=== PATIENT | male | born 1960 | race Caucasian/White ===

== ENCOUNTER 2020-02-19 01:12 | Inpatient (IN) | payer BC ==
[2020-02-19] MEDS ORDERED: Midazolam HCl 2 mg/2 ml Vial ONE (01:33)
[2020-02-19] MEDS ORDERED: Fentanyl 100 MCG/2 ML VIAL ONE (01:34)
[2020-02-19] MEDS ORDERED: Atropine Sulfate 1 mg/10 ml Syringe ONE (01:50)
[2020-02-19] MEDS ORDERED: Aggrastat 12.5 MG/250 ML 0 ML ONE (02:02)
[2020-02-19] MEDS ORDERED: traMADol HCl 50 MG TAB PO PRN (02:07)
[2020-02-19] MEDS ORDERED: Morphine 2 MG/ML SYRINGE SLOW IVP PRN (02:07)
[2020-02-19] MEDS ORDERED: Acetaminophen/Codeine 30-300mg Tablet PO PRN (02:07)
[2020-02-19] MEDS ORDERED: Heparin 10,000 UNITS/ 10 ML VIAL SLOW IVP SCH (02:30)
--- NOTE | 2020-02-19 02:52 | HP ---
CHIEF COMPLAINT: Chest pain. HISTORY OF PRESENT ILLNESS: Mr. Lyons is a 59-year-old white gentleman, who came to the hospital, was transferred from [facility]. He actually presented to [facility] last night with chest pain. He was evaluated and found to have an elevated troponin, diagnosed with a non-ST elevation KY with ongoing chest pain. He declined admission and actually left AMA. He came back today as he continued to have chest pain. At this time, his EKG was changed. He had ST elevations inferiorly, so he was transferred emergently with an ST-elevation KY activation. In the ER, his pain was pretty much resolved. He was taken emergently to the catheterization lab. However, as his STs remained elevated and he was found to have an occluded distal RCA, this one was wired and ballooned opened and manual thrombectomy was done. There was a very poor distal vessel distally. We had already taken pictures of the left side and he had severe multivessel disease, possibly needing bypass surgery, so the RCA was left with the balloon angioplasty results only. He had no change in his symptoms before or after opening the vessel. He was already chest pain free by the time he arrived. He tells me that he has noticed some chest tightness in the last 2 to 3 months. 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 PAST MEDICAL HISTORY: 1. Hypertension diagnosed about 2 weeks ago. 2. Diabetes diagnosed yesterday in the ER. He takes no medications for this. PAST SURGICAL HISTORY: None. OUTPATIENT MEDICATIONS: Include, 1. Losartan 50 mg a day. He tells me he has been doubling up taking 100 daily. For the last few days, his blood pressure was not getting controlled. 2. Aspirin 81 a day. ALLERGIES: NO KNOWN DRUG ALLERGIES. SOCIAL HISTORY: Smokes a little less than one pack a day for many, many years. Denies any drug use. Social alcohol use only. FAMILY HISTORY: Father had stents placed and had a heart attack in his 70s. Mother had heart attacks as well under 70s. REVIEW OF SYSTEMS: A 12-point review of systems was done and was all negative except as stated in the history of present illness. PHYSICAL EXAMINATION: VITAL SIGNS: Temperature 97.2, pulse 70, respiratory rate 16, satting 98% on 2 L nasal cannula, and blood pressure 116/78. GENERAL: Awake, alert, and oriented x3. No distress. HEENT: Normocephalic and atraumatic. NECK: Supple. LUNGS: Clear. CARDIOVASCULAR: S1, S2. No S3 or S4. No murmurs. ABDOMEN: Soft. Positive bowel sounds. EXTREMITIES: No edema. SKIN: Warm and dry. LABORATORY DATA: Laboratory work was reviewed. His white count of 14, hemoglobin of 14, hematocrit 45, and platelet count of 255. Coags were reviewed. Chemistries were reviewed. Troponin was 0.79, when he came into the ER yesterday; 9.0 on his presentation today. GFR was greater than 90. Glucose was 434 yesterday, 319 today. BNP was 25 yesterday. EKG was reviewed, inferior ST elevations with Qs suggestive of an old inferior [place]. CT of the chest and x-rays were reviewed. ASSESSMENT: 1. Inferior ST-elevation myocardial infarction. 2. Newly diagnosed type 2 diabetes. 3. Hypertension. PLAN: 1. Status post balloon angioplasty of the RCA. Very small distal vessel. He is getting small collaterals to the RCA already. He is pain free despite having a completely occluded artery. Most likely this inferior distribution is already infarcted. He does have severe LAD and circumflex disease. We will consult Cardiothoracic Surgery to see if they feel he would be a candidate for a surgical revascularization at this point. 2. Echocardiogram is to be done. 3. We will continue heparin drip for now as he has a large amount of thrombus. During manual thrombectomy, we had a large amount of red thrombus taken out of the RCA. 4. High dose statin and aspirin. 5. PPI for stress ulcer prophylaxis. 6. We will keep n.p.o. just in case surgery is planned for later today. 7. Full code. 8. Disposition, pending further evaluation. Job ID: [id number]
[2020-02-19 02:54] LABS: #Basophils 0.1 thou/uL (0.0-0.2); #Eosinphils 0.5 thou/uL (0.0-0.7); #Lymphocytes 4.7 thou/uL (1.20-3.40); #Monocytes 1.1 thou/uL (0.11-0.59); #Neutrophils 11.2 thou/uL (1.40-6.50); %Basophils 0.4 % (0.0-1.0); %Eosinophils 2.7 % (0.0-10.0); %Lymphocytes 26.7 % (21.0-51.0); %Monocytes 6.1 % (0.0-10.0); %Neutrophils 64.2 % (42.0-75.0); Hemoglobin 14.2 g/dL (14.0-18.0); Mean Corpuscular HGB CONC 34.1 g/dL (32.0-36.0); Mean Corpuscular Volume 91.1 fL (78.0-98.0); Mean Platelet Volume 8.2 fL (7.4-10.4); Platelet Count 272 thou/uL (130-400); RBC Distribution Width 13.2 % (11.5-14.5); Red Blood Cell (RBC) Count 4.57 mill/uL (4.70-6.10); White Blood Cell (WBC) Count 17.5 thou/uL (4.8-10.8)
[2020-02-19] MEDS ORDERED: Sodium Chloride 0.9% 250 ML IV SCH (03:00)
[2020-02-19 03:05] VITALS: BMI 36.8
[2020-02-19 03:18] LABS: PTT Greater than 250.0 SEC (22.9-36.1)
[2020-02-19 03:20] LABS: ALT (SGPT) 32 U/L (8-55); AST (SGOT) 55 U/L (5-34); Albumin 3.5 g/dL (3.5-5.0); Alkaline Phosphatase 64 U/L (40-110); Anion Gap 13 mmol/L (10-20); BUN (Urea Nitrogen) 8 mg/dL (8.4-25.7); Bilirubin, Total 0.6 mg/dL (0.2-1.2); Calc. Creatinine Clearance 184 mL/min (70-130); Calcium 8.4 mg/dL (7.8-10.44); Carbon Dioxide 24 mmol/L (22-29); Chloride 100 mmol/L (98-107); Estimated GFR-MDRD Greater than 90; Globulin 2.9 g/dL (2.4-3.5); Glucose 283 mg/dL (70-105); Protein, Total 6.4 g/dL (6.0-8.3); Sodium 133 mmol/L (136-145)
[2020-02-19] MEDS: Heparin 25,000 units/D5W 500 ML IVPB SCH (03:27)
[2020-02-19 03:34] LABS: CKMB 36.8 ng/mL (0-6.6); Troponin I 10.945 ng/mL (< 0.028)
[2020-02-19] MEDS: Nitroglycerin 0.4 MG TAB (25 Tab Bottle) SL PRN (06:28)
[2020-02-19] MEDS: Aspirin Chewable 81 MG TAB PO SCH (07:42)
[2020-02-19 08:37] LABS: Hemoglobin A1c 10.4 % (4.0-6.0)
[2020-02-19 08:56] LABS: Critical Call Chem Troponin I RESULT DECREASING; Troponin I 10.653 ng/mL (< 0.028)
[2020-02-19 08:56] LABS: CKMB 33.2 ng/mL (0-6.6); Critical Call CKMB RESULT DECREASING
[2020-02-19] MEDS ORDERED: Iopamidol 370 76% 100 ML VIAL ONE (09:36)
[2020-02-19] MEDS ORDERED: Communication Order-Pharmacy FS SCH (12:30)
--- NOTE | 2020-02-19 14:27 | CON ---
DATE OF CONSULTATION: 02/19/2020 REQUESTING PHYSICIAN: Garo Chatman MD PRIMARY CARE PHYSICIAN: Dr. Lexa De La Cruz. CHIEF COMPLAINT: Chest pain. HISTORY OF PRESENT ILLNESS: The patient is a 59-year-old man who gives a history of noticing that his blood pressure was running high for the last several weeks or even few months. He says that he finally bought a blood pressure machine of his known recently and his blood pressure had been running in the 180s systolic range. His primary care physician started him on losartan and aspirin. He had chest pain in his central chest and up into his throat, going into his arms, and got someone to drive him to the [facility]. His blood pressure and chest pain improved with labetalol and nitroglycerin paste. He had a positive troponin on his initial labs, but refused admission. About 24 hours later, he had recurrence of pain, returned to the emergency room where he was again found to be hypertensive and this time he had ST elevations in his inferior leads and he agreed to transfer to [place]. He was taken to the laboratory technical specialist and balloon angioplasty of an occluded right coronary was undertaken. He has had an uncomplicated post infarction course thus far. PAST MEDICAL HISTORY: Significant for: 1. Recently diagnosed hypertension. 2. Diabetes mellitus is being diagnosed this hospitalization. MEDICATIONS: Until recently, the patient had no medications. He was recently started on losartan 50 mg a day and a baby aspirin a day. He received nitroglycerin paste and labetalol at his first hospital visit to the [facility], and was given a prescription for metformin and Lopressor, but had not filled those prescriptions. He is currently on aspirin 81 mg a day, Lipitor 40 mg at bedtime, Protonix 40 mg orally once a day, and a heparin drip. He received Aggrastat in the laboratory technical specialist, but no oral platelet agents beyond his aspirin. SOCIAL HISTORY: He smokes about a pack of cigarettes a day. FAMILY HISTORY: His father had apparently significant COPD, he lived in mid 80s and had "heart problems" for about the last 10 years of his life. Mother with Alzheimer disease. REVIEW OF SYSTEMS: Notable for an episode of chest pain about 2 weeks ago. One of these episodes of chest pain was associated with some diaphoresis. He has not had any shortness of breath. He has chronic dependent edema. He has no eye, speech, facial, or extremity symptoms consistent with TIAs. PHYSICAL EXAMINATION: GENERAL: He is a large man, in no distress. VITAL SIGNS: In the [facility] emergency room Wednesday night, his heart rate initially was 81 and blood pressure 201/97, those came down to 76 and 155/81 with 10 mg of labetalol and 1 inch of nitroglycerin paste, but it crept back up to 80 and 171/86 at the time of his leaving AMA. On representation late last night, his heart rate was 80 and blood pressure of 196/86. Currently, his heart rate is 85 and blood pressure is 142/74. He is 5 feet 10 inches and weighs 256.5 pounds. HEENT: He has no xanthelasma. NECK: No JVD. No carotid bruits. CHEST: Clear to auscultation. CARDIAC: He has a regular rate and rhythm without obvious murmur or gallop. ABDOMEN: Soft and nontender without any obvious organomegaly or bruits. EXTREMITIES: He has palpable radial, left femoral, and bilateral dorsalis pedis pulses. He has a femoral sheath in place in the right groin. He has a venous stasis pigmentation changes anteriorly in the pretibial region in his lower legs with small areas of ulceration anteriorly on both legs. He has brisk capillary refill. He has about 2+ edema. NEUROLOGIC: Grossly nonfocal. LABORATORY DATA: White count of 14.3, hemoglobin of 14.1, hematocrit 45.1, and platelets 272,000. Prior to heparinization, his PT was 13.0, INR 1.0, and PTT 30.4. Sodium was 133, potassium 4.0, chloride 100, CO2 of 24, glucose 283, BUN 8, creatinine 0.72, and calcium 8.4. Protein 6.4, albumin 3.5, bilirubin 0.6, alkaline phosphatase 64, AST 55, and ALT 32. His troponin shortly after midnight early yesterday morning was 0.797. Shortly after midnight early this morning, it was 9.088 and was associated with a CPK of 515. His troponin about 2:40 this morning was 10.945 and about 8:15 this morning was 10.653. His blood sugar at original presentation late Wednesday night was 434 and then late last night was 319. His hemoglobin A1c is 10.4. His EKG from last night showed inferior ST elevations. His chest x-ray showed no obvious cardiomegaly, it was somewhat difficult to appreciate whether the prominent pulmonary vasculature represented edema, pulmonary vascular congestion, or simply under-penetration of the plain films. He had a CTA that showed no evidence of pulmonary embolism, and on those lung windows, it can be appreciated that he seems to have vascular congestion dependently. He has no obvious aortic calcifications. His cardiac catheterization showed an occluded dominant right coronary that was opened by balloon angioplasty. He has disease in his PDA. His left main and very proximal LAD were normal. Shortly after the first septal management psychologist, there was significant stenosis, although there were multiple stenoses in the LAD. His circumflex gives off a very large OM that has a lesion in it. There is disease in an OM2, but it is fairly small. LVEF by my estimation is probably at best 20% and probably closer to 10 or 15, although LVEDP was not markedly elevated. His aortic pressure on pullback was 109/63 with a mean of 83. A snapshot of the LV just shortly before that was 116/8 with an EDP of 18 and LV pressure used as the baseline for pullback was 120/9 with EDP of 23. His echocardiogram is pending. IMPRESSION AND RECOMMENDATIONS: Three-vessel coronary artery disease. It sounds like he had a non-ST elevation myocardial infarction Wednesday night and then re-infarcted this time with ST-elevation last night. It is hard to tell how much of his bad ejection fraction at the moment is due to infarction, how much is due to stunned myocardium, how much is long-standing disease that may or may not recover, but certainly he would be at significantly increased risk with revascularization immediately. I would like to at least give him a few days and re-evaluate his cardiac function before making any firm recommendations. Given his anatomy and his clinical course, trying to send him home to bring him back at a later date when he has had more time for his LV to recover, may prove problematic. In the mean time, his blood sugars and blood pressure need to be brought under good control. Job ID: [id number]
--- NOTE | 2020-02-19 14:47 | CON ---
DATE OF CONSULTATION: 02/19/2020 SERVICE: Pulmonary Medicine. REASON FOR CONSULTATION: ICU patient. HISTORY OF PRESENT ILLNESS: The patient is a 59-year-old white male with past medical history significant for coronary artery disease. He is in his usual state of health until one day prior to presentation. He started having onset of crushing chest discomfort. This lasted for 24 hours before he sought medical attention. At that point, he was discovered to have an ST-elevation myocardial infarction. He was emergently taken down for cardiac catheterization, where percutaneous coronary intervention with thrombectomy, and balloon angioplasty was performed. No stent was placed. After this procedure, he had resolution in his chest discomfort. He is being considered for coronary artery bypass graft, because of multivessel disease identified. Otherwise, he is currently in his usual state of health. He denies any current shortness of breath or chest discomfort. He does not have any significant respiratory issues, but has a very strong positive screen for sleep apnea, which I have told him to discuss with his primary care physician. PAST MEDICAL HISTORY: 1. Hypertension. 2. Type 2 diabetes mellitus. 3. Coronary artery disease. PAST SURGICAL HISTORY: Percutaneous coronary intervention. SOCIAL HISTORY: He smokes under a pack a day. He has a greater than 30 pack- year history of smoking, however. He denies any alcohol or illicit drugs. He has no exposure to chemicals, dust, asbestos, or tuberculosis. FAMILY HISTORY: Noncontributory. ALLERGIES: NO KNOWN DRUG ALLERGIES. MEDICATIONS: List of his inpatient medications was reviewed. No specific updates were made at this time. REVIEW OF SYSTEMS: General, head, ears, eyes, nose, throat, cardiovascular, respiratory, GI, , musculoskeletal, neurologic, and skin is negative except as mentioned in HPI. PHYSICAL EXAMINATION: VITAL SIGNS: Afebrile. Pulse 80, blood pressure 146/68, respirations 21, saturation 96% on room air. GENERAL: The patient is awake and alert, in no apparent distress. LUNGS: Decent air entry with no prolonged expiratory phase or wheezing present. HEART: Normal rate, regular. ABDOMEN: Soft, nontender, nondistended. Bowel sounds are positive. MUSCULOSKELETAL: No cyanosis or clubbing. There is no pitting in the bilateral lower extremities. NEUROLOGIC: Grossly nonfocal. LABORATORY DATA: WBC 17.5, hemoglobin 14.2, platelets 272,000. Basic metabolic profile is unremarkable. Liver function studies are unremarkable except for an AST minimally elevated. Troponin has capped out at 10.6. Hemoglobin A1c 10.4. IMAGING: Chest x-ray demonstrates no acute cardiopulmonary abnormality. ASSESSMENT: 1. ST-elevation myocardial infarction, status post percutaneous coronary intervention with balloon angioplasty, postop day #1. 2. Coronary artery disease, severe. 3. Type 2 diabetes mellitus. DISCUSSION AND PLAN: The patient is doing fine from respiratory standpoint and remains stable for transition out of the ICU. In the outpatient setting, it would be reasonable to screen him for obstructive sleep apnea. If this is persistently positive, an outpatient polysomnogram should be considered. I have asked for him to discuss this with his primary care physician. Critical Care will follow in this location, but when he leaves the ICU, I will sign off. Please call with additional questions or concerns through time. 70 minutes have been devoted to this patient in various activities. I personally reviewed all imaging studies and laboratory data noted within this document. For fifty percent of this time, I was interacting with the patient at the bedside or coordinating care with the care team. For the remainder of the time I was immediately available to the patient in the hospital unit. Job ID: [id number] MTDD
--- NOTE | 2020-02-19 16:04 | PDOC.CPN ---
- Subjective Date: 02/19/20 Time: 16:01 Interval history: He is doing better. Had an episodes of chest pain earlier this morning that responded to SL nitro. - Review of Systems General: denies: fever/chills, weight/appetite/sleep changes, night sweats, fatigue Respiratory: denies: cough, congestion, shortness of breath, exercise intolerance Cardiovascular: reports: chest pain. denies: palpitation, edema, paroxysmal nocturnal dyspnea, orthopnea Gastrointestinal: denies: nausea, vomiting, diarrhea, constipation, abd pain, GI bleeding Musculoskeletal: reports: pain. denies: tenderness, stiffness, swelling, arthritis/arthralgias Neurological: denies: numbness, syncope, seizure, weakness - Objective Allergies/Adverse Reactions: Allergies Allergy/AdvReac Type Severity Reaction Status Date / Time No Known Allergies Allergy Unverified 02/19/20 02:45 Visit Medications: Current Medications Acetaminophen/Codeine Phosphate (Tylenol #3) 1 tab PO Q4H PRN PRN Reason: Mild Pain (1-3) Last Admin: 02/19/20 11:13 Dose: 1 tab Aspirin (Aspirin Chewable) 81 mg PO DAILY [facility] Last Admin: 02/19/20 07:42 Dose: 81 mg Atorvastatin Calcium (Lipitor) 80 mg PO HS [facility] Heparin Sodium (Porcine) (Heparin 1,000 Units/Ml (10 Ml)) 0 units SLOW IVP ASDIR [facility]; Protocol Heparin Sodium/Dextrose (Heparin 25,000 Units/D5w) 500 mls @ 0 mls/hr IVPB INF [facility]; Protocol Last Admin: 02/19/20 03:27 Dose: 500 mls Cefazolin Sodium/Dextrose 2 gm (/ Device) 50 mls @ 100 mls/hr IVPB ONCALL-OR [facility] Miscellaneous Information (Communication Order-Pharmacy) 1 each FS ASDIR [facility] Morphine Sulfate (Morphine) 2 mg SLOW IVP Q4H PRN PRN Reason: Moderate Chest Pain (4-6) Nitroglycerin (Nitrostat) 0.4 mg SL Q5MIN PRN PRN Reason: Chest Pain Last Admin: 02/19/20 06:28 Dose: 0.4 mg Pantoprazole Sodium (Protonix) 40 mg PO DAILY [facility] Last Admin: 02/19/20 07:41 Dose: 40 mg Sodium Chloride (Flush - Normal Saline) 10 ml IVF PRN PRN PRN Reason: Saline Flush Tramadol HCl (Ultram) 50 mg PO Q6H PRN PRN Reason: Mild Pain (1-3) Vital Signs & Weight: Vital Signs Pulse Ox 02/19/20 07:27 100 Weight 256 lb 6.362 oz - Physical Exam General: alert & oriented x3 HEENT: mucus membranes moist Neck: supple neck Cardiac: regular rate and rhythm Lungs: normal breath sounds Neuro: grossly intact Abdomen: active bowel sounds Extremities: no edema Skin: clear Musculoskeletal: no pain - Labs Result Diagrams: 02/19/20 02:39 02/19/20 02:39 Troponin/CKMB CK-MB (CK-2) 33.2 ng/mL (0-6.6) H* 02/19/20 08:14 Troponin I 10.653 ng/mL (< 0.028) H* 02/19/20 08:15 - Telemetry Sinus rhythms and dysrhythmias: sinus rhythm - Assessment/Plan Assessment/Plan: 1. Acute inferior STEMI 2. Multivessel CAD 3. HTN 4. New onset DMT2 PLAN: - Stop heparin to pull femoral arterial sheath and restart Heparin 4 hours later. - Echo pending. - Bypass surgery scheduled for later in the week. - Continue ASA/high dose statins. - Critical Care Time Critical care time (mins): 30
[2020-02-19] MEDS: Atorvastatin Calcium 40 MG TAB PO SCH (21:26)
[2020-02-20 03:14] LABS: #Eosinphils 0.2 thou/uL (0.0-0.7); #Monocytes 1.1 thou/uL (0.11-0.59); #Neutrophils 8.8 thou/uL (1.40-6.50); %Basophils 0.1 % (0.0-1.0); %Eosinophils 1.7 % (0.0-10.0); %Lymphocytes 28.3 % (21.0-51.0); %Monocytes 7.7 % (0.0-10.0); %Neutrophils 62.2 % (42.0-75.0); Hemoglobin 14.5 g/dL (14.0-18.0); Mean Corpuscular HGB CONC 33.3 g/dL (32.0-36.0); Mean Corpuscular Hemoglobin 30.5 pg (27.0-31.0); Mean Corpuscular Volume 91.6 fL (78.0-98.0); Mean Platelet Volume 8.3 fL (7.4-10.4); Platelet Count 178 thou/uL (130-400); RBC Distribution Width 13.2 % (11.5-14.5); Red Blood Cell (RBC) Count 4.75 mill/uL (4.70-6.10); White Blood Cell (WBC) Count 14.2 thou/uL (4.8-10.8)
[2020-02-20 03:34] LABS: ALT (SGPT) 27 U/L (8-55); AST (SGOT) 40 U/L (5-34); Albumin 3.4 g/dL (3.5-5.0); Alkaline Phosphatase 63 U/L (40-110); Anion Gap 14 mmol/L (10-20); BUN (Urea Nitrogen) 8 mg/dL (8.4-25.7); Bilirubin, Total 0.6 mg/dL (0.2-1.2); Calc. Creatinine Clearance 174 mL/min (70-130); Calcium 8.3 mg/dL (7.8-10.44); Carbon Dioxide 21 mmol/L (22-29); Chloride 102 mmol/L (98-107); Estimated GFR-MDRD Greater than 90; Globulin 3.1 g/dL (2.4-3.5); Glucose 281 mg/dL (70-105); Potassium 3.8 mmol/L (3.5-5.1); Protein, Total 6.5 g/dL (6.0-8.3); Sodium 133 mmol/L (136-145)
[2020-02-20] MEDS ORDERED: Dextrose 50% Abboject 50 ML SYRINGE SLOW IVP PRN (06:52)
[2020-02-20] MEDS ORDERED: Dextrose 5% in Water 1,000 ML IV PRN (06:52)
[2020-02-20] MEDS: Carvedilol 6.25 MG TAB PO SCH ×2 (07:30→19:00)
[2020-02-20] MEDS: Lisinopril 2.5 MG TAB PO SCH (07:30)
[2020-02-20] MEDS: Aspirin Chewable 81 MG TAB PO SCH (07:31)
[2020-02-20] MEDS: Insulin Regular 300 UNITS/3 ML VIAL SC PRN ×3 (07:39→15:58)
--- NOTE | 2020-02-20 15:07 | PRG ---
DATE OF SERVICE: 02/20/2020 SERVICE: Pulmonary Medicine. INTERVAL HISTORY: The patient ended up having a little bit of discomfort in his chest yesterday. That being said, it is more associated with movement than anything else. It is gone at this point. Denies any current nausea, vomiting, or overnight events. Nursing reports no events. His troponins have trickled upward. That being said, previous catheterization showed severe three-vessel disease. A thrombectomy was performed with balloon angioplasty, but no stent could be placed at that time. He did not have any significant events on telemetry. PHYSICAL EXAMINATION: VITAL SIGNS: Afebrile, pulse 85, blood pressure 135/68, respirations 19, and saturation 98%, currently on room air. GENERAL: The patient is awake and alert, in no apparent distress. LUNGS: Very good air entry without any prolonged expiratory phase or wheezing present. HEART: Normal rate, regular. ABDOMEN: Soft, nontender, nondistended. Bowel sounds are positive. MUSCULOSKELETAL: No cyanosis or clubbing. No pitting in the bilateral lower extremities. NEUROLOGIC: Grossly nonfocal. LABORATORY DATA: WBC 14.2 and downtrending, hemoglobin 14.5, and platelets 178,000. Differential on the CBC is unremarkable. Bicarb 21 and gently downtrending, anion gap is stable at 14. Basic metabolic profile and liver function studies are otherwise unremarkable. Troponin was 10.6. Liver function studies are unremarkable. Hemoglobin A1c of 10.4. IMAGING: Echocardiogram shows normal ejection fraction, 1/3 diastolic dysfunction, inferior and inferolateral hypokinesis, and no significant valvular abnormalities. ASSESSMENT: 1. ST-elevation myocardial infarction, status post percutaneous coronary intervention with balloon angioplasty, postop day 2. 2. Coronary artery disease, severe. 3. Type 2 diabetes mellitus. DISCUSSION AND PLAN: The patient remains on a heparin drip. He had not had any significant events on telemetry. If okay with Cardiology, he can be transitioned to the floor. He no longer requires Pulmonary/Critical Care opinion, and I will sign off. Please call with additional questions or concerns through time. He remains on a heparin drip, and telemetry monitoring is indicated. Tentatively, he is scheduled for a coronary artery bypass graft on of this week. Job ID: [id number]
--- NOTE | 2020-02-20 16:21 | PDOC.CPN ---
- Subjective Date: 02/20/20 Time: 16:19 Interval history: He is pain free at rest. If he does any exertion he feels chest tightness. - Review of Systems General: denies: fever/chills, weight/appetite/sleep changes, night sweats, fatigue Respiratory: denies: cough, congestion, shortness of breath, exercise intolerance Cardiovascular: reports: chest pain. denies: palpitation, edema, paroxysmal nocturnal dyspnea, orthopnea Gastrointestinal: denies: nausea, vomiting, diarrhea, constipation, abd pain, GI bleeding Musculoskeletal: denies: pain, tenderness, stiffness, swelling, arthritis/ arthralgias Neurological: denies: numbness, syncope, seizure, weakness - Objective Allergies/Adverse Reactions: Allergies Allergy/AdvReac Type Severity Reaction Status Date / Time No Known Allergies Allergy Unverified 02/19/20 02:45 Visit Medications: Current Medications Acetaminophen/Codeine Phosphate (Tylenol #3) 1 tab PO Q4H PRN PRN Reason: Mild Pain (1-3) Last Admin: 02/19/20 11:13 Dose: 1 tab Aspirin (Aspirin Chewable) 81 mg PO DAILY [facility] Last Admin: 02/20/20 07:31 Dose: 81 mg Atorvastatin Calcium (Lipitor) 80 mg PO HS [facility] Last Admin: 02/19/20 21:26 Dose: 80 mg Carvedilol (Coreg) 6.25 mg PO BID-WM [facility] Last Admin: 02/20/20 07:30 Dose: 6.25 mg Dextrose/Water (Dextrose 50%) 25 gm SLOW IVP PRN PRN PRN Reason: Hypoglycemia Glucagon (Glucagon) 1 mg IM PRN PRN PRN Reason: Hypoglycemia Heparin Sodium (Porcine) (Heparin 1,000 Units/Ml (10 Ml)) 0 units SLOW IVP ASDIR [facility]; Protocol Last Admin: 02/20/20 00:42 Dose: 3,489 unit Heparin Sodium/Dextrose (Heparin 25,000 Units/D5w) 500 mls @ 0 mls/hr IVPB INF [facility]; Protocol Last Admin: 02/19/20 03:27 Dose: 500 mls Cefazolin Sodium/Dextrose 2 gm (/ Device) 50 mls @ 100 mls/hr IVPB ONCALL-OR [facility] Dextrose/Water (D5w) 1,000 mls @ 0 mls/hr IV .Q0M PRN PRN Reason: Hypoglycemia Insulin Human Regular (Humulin R) 0 units SC .MODERATE SLIDING SC PRN PRN Reason: Moderate Correctional Scale Last Admin: 02/20/20 15:58 Dose: 4 unit Lisinopril (Zestril) 2.5 mg PO DAILY [facility] Last Admin: 02/20/20 07:30 Dose: 2.5 mg Miscellaneous Information (Communication Order-Pharmacy) 1 each FS ASDIR [facility] Morphine Sulfate (Morphine) 2 mg SLOW IVP Q4H PRN PRN Reason: Moderate Chest Pain (4-6) Nitroglycerin (Nitrostat) 0.4 mg SL Q5MIN PRN PRN Reason: Chest Pain Last Admin: 02/19/20 06:28 Dose: 0.4 mg Pantoprazole Sodium (Protonix) 40 mg PO DAILY [facility] Last Admin: 02/20/20 07:30 Dose: 40 mg Sodium Chloride (Flush - Normal Saline) 10 ml IVF PRN PRN PRN Reason: Saline Flush Tramadol HCl (Ultram) 50 mg PO Q6H PRN PRN Reason: Mild Pain (1-3) Vital Signs & Weight: Vital Signs Temp Pulse BP Pulse Ox 02/20/20 07:48 98 F 02/20/20 07:42 97 02/20/20 07:30 79 154/69 H Weight 258 lb 6.108 oz - Physical Exam General: alert & oriented x3 HEENT: mucus membranes moist Neck: supple neck Cardiac: regular rate and rhythm Lungs: normal breath sounds Neuro: grossly intact Abdomen: active bowel sounds Extremities: no edema Skin: clear, other (Bilateral anterior alegre wounds.) Musculoskeletal: no pain - Labs Result Diagrams: 02/20/20 03:05 02/20/20 03:05 Troponin/CKMB CK-MB (CK-2) 33.2 ng/mL (0-6.6) H* 02/19/20 08:14 Troponin I 10.653 ng/mL (< 0.028) H* 02/19/20 08:15 - Telemetry Sinus rhythms and dysrhythmias: sinus rhythm - Assessment/Plan Assessment/Plan: 1. Acute inferior STEMI 2. Multivessel CAD 3. HTN 4. New onset DMT2 PLAN: - Continue Heparin gtt - Plan for surgery - Will transfer to telemetry floor. - Bed rest with bathroom privileges.
[2020-02-20] MEDS ORDERED: Carvedilol 6.25 MG TAB PO SCH (19:00)
[2020-02-20] MEDS: Atorvastatin Calcium 40 MG TAB PO SCH (22:00)
[2020-02-20] MEDS: Heparin 25,000 units/D5W 500 ML IVPB SCH (22:07)
[2020-02-20] MEDS: Nitroglycerin 0.4 MG TAB (25 Tab Bottle) SL PRN (23:36)
[2020-02-21 03:07] LABS: Hemoglobin 13.3 g/dL (14.0-18.0); Platelet Count 230 thou/uL (130-400)
[2020-02-21 04:30] LABS: #Eosinphils 0.2 thou/uL (0.0-0.7); #Lymphocytes 3.3 thou/uL (1.20-3.40); #Monocytes 0.9 thou/uL (0.11-0.59); #Neutrophils 7.6 thou/uL (1.40-6.50); %Basophils 0.3 % (0.0-1.0); %Eosinophils 1.6 % (0.0-10.0); %Lymphocytes 27.3 % (21.0-51.0); %Monocytes 7.1 % (0.0-10.0); %Neutrophils 63.6 % (42.0-75.0); Hemoglobin 12.7 g/dL (14.0-18.0); Mean Corpuscular HGB CONC 33.2 g/dL (32.0-36.0); Mean Corpuscular Hemoglobin 30.6 pg (27.0-31.0); Mean Corpuscular Volume 92.1 fL (78.0-98.0); Mean Platelet Volume 8.2 fL (7.4-10.4); Platelet Count 231 thou/uL (130-400); RBC Distribution Width 13.2 % (11.5-14.5); Red Blood Cell (RBC) Count 4.15 mill/uL (4.70-6.10)
[2020-02-21] MEDS: Insulin Regular 300 UNITS/3 ML VIAL SC PRN ×3 (06:14→16:48)
[2020-02-21] MEDS: Aspirin Chewable 81 MG TAB PO SCH (08:43)
[2020-02-21] MEDS: Lisinopril 2.5 MG TAB PO SCH (08:43)
[2020-02-21] MEDS: Carvedilol 6.25 MG TAB PO SCH ×2 (08:43→16:47)
[2020-02-21] MEDS: Nitroglycerin 0.4 MG TAB (25 Tab Bottle) SL PRN (12:08)
[2020-02-21] MEDS: Heparin 25,000 units/D5W 500 ML IVPB SCH (12:08)
--- NOTE | 2020-02-21 12:15 | PQF ---
DATE: 02-21-20 ATTN: DR. HAYDE MARTINEZ Please exercise your independent, professional judgment in responding to the clarification form. Clinical indicators are provided on the bottom of this form for your review Please check appropriate box(s): [ ] Hyponatremia [ ] Insignificant Lab Values [ ] Other diagnosis [ ] Unable to determine In addition, please specify: Present on Admission (POA): [ ] Yes [ ] No [ ] Unable to determine For continuity of documentation, please document condition throughout progress notes and discharge summary. Thank You. CLINICAL INDICATORS - SIGNS / SYMPTOMS/ LABS are present in the medical record: SODIUM: 02-19-20: 133 02-20-20: 133 RISK FACTORS: H&P 02-19-20: INFERIOR STEMI, NEWLY DIAGNOSED TYPE 2 DIABETES, HTN TREATMENT: SERIES OF LABS 02-19-20 AND 02-20-20 (This form is maintained as a part of the permanent medical record) 2014 [employer], [employer]. All Rights Reserved VALARIE [email or web address] Office: [phone] KRISTOFER
--- NOTE | 2020-02-21 18:24 | PDOC.CPN ---
- Subjective Date: 02/21/20 Time: 18:23 Interval history: He is doing well. minimal chest pain. - Review of Systems General: denies: fever/chills, weight/appetite/sleep changes, night sweats, fatigue Respiratory: denies: cough, congestion, shortness of breath, exercise intolerance Cardiovascular: reports: chest pain. denies: palpitation, edema, paroxysmal nocturnal dyspnea, orthopnea Gastrointestinal: denies: nausea, vomiting, diarrhea, constipation, abd pain, GI bleeding Musculoskeletal: denies: pain, tenderness, stiffness, swelling, arthritis/ arthralgias Neurological: denies: numbness, syncope, seizure, weakness - Objective Allergies/Adverse Reactions: Allergies Allergy/AdvReac Type Severity Reaction Status Date / Time No Known Allergies Allergy Unverified 02/19/20 02:45 Visit Medications: Current Medications Acetaminophen/Codeine Phosphate (Tylenol #3) 1 tab PO Q4H PRN PRN Reason: Mild Pain (1-3) Last Admin: 02/19/20 11:13 Dose: 1 tab Aspirin (Aspirin Chewable) 81 mg PO DAILY [facility] Last Admin: 02/21/20 08:43 Dose: 81 mg Atorvastatin Calcium (Lipitor) 80 mg PO HS [facility] Last Admin: 02/20/20 22:00 Dose: 80 mg Carvedilol (Coreg) 12.5 mg PO BID-[facility] Last Admin: 02/21/20 16:47 Dose: 12.5 mg Dextrose/Water (Dextrose 50%) 25 gm SLOW IVP PRN PRN PRN Reason: Hypoglycemia Glucagon (Glucagon) 1 mg IM PRN PRN PRN Reason: Hypoglycemia Heparin Sodium (Porcine) (Heparin 1,000 Units/Ml (10 Ml)) 0 units SLOW IVP ASDIR ANGELIQUE; Protocol Stop: 02/22/20 02:00 Last Admin: 02/20/20 00:42 Dose: 3,489 unit Heparin Sodium/Dextrose (Heparin 25,000 Units/D5w) 500 mls @ 0 mls/hr IVPB INF ANGELIQUE; Protocol Stop: 02/22/20 02:00 Last Admin: 02/21/20 12:08 Dose: 500 mls Cefazolin Sodium/Dextrose 2 gm (/ Device) 50 mls @ 100 mls/hr IVPB ONCALL-OR ANGELIQUE Dextrose/Water (D5w) 1,000 mls @ 0 mls/hr IV .Q0M PRN PRN Reason: Hypoglycemia Insulin Human Regular (Humulin R) 0 units SC .MODERATE SLIDING SC PRN PRN Reason: Moderate Correctional Scale Last Admin: 02/21/20 16:48 Dose: 8 unit Lisinopril (Zestril) 2.5 mg PO DAILY [facility] Last Admin: 02/21/20 08:43 Dose: 2.5 mg Miscellaneous Information (Communication Order-Pharmacy) 1 each FS ASDIR [facility] Morphine Sulfate (Morphine) 2 mg SLOW IVP Q4H PRN PRN Reason: Moderate Chest Pain (4-6) Nitroglycerin (Nitrostat) 0.4 mg SL Q5MIN PRN PRN Reason: Chest Pain Last Admin: 02/21/20 12:08 Dose: 0.4 mg Pantoprazole Sodium (Protonix) 40 mg PO DAILY [facility] Last Admin: 02/21/20 08:43 Dose: 40 mg Sodium Chloride (Flush - Normal Saline) 10 ml IVF PRN PRN PRN Reason: Saline Flush Tramadol HCl (Ultram) 50 mg PO Q6H PRN PRN Reason: Mild Pain (1-3) Vital Signs & Weight: Vital Signs Temp Pulse Resp BP BP Pulse Ox 02/21/20 15:06 97.7 F 74 16 114/69 95 02/21/20 11:52 97.9 F 74 18 144/66 H 95 02/21/20 08:43 85 154/69 H 02/21/20 08:12 98.3 F 85 16 128/71 94 L 02/21/20 08:09 94 L Weight 248 lb 8 oz - Physical Exam General: alert & oriented x3 HEENT: mucus membranes moist Neck: supple neck Cardiac: regular rate and rhythm Lungs: normal breath sounds Neuro: grossly intact Abdomen: active bowel sounds Extremities: no edema Skin: clear Musculoskeletal: no pain - Labs Result Diagrams: 02/21/20 04:10 02/20/20 03:05 Troponin/CKMB CK-MB (CK-2) 33.2 ng/mL (0-6.6) H* 02/19/20 08:14 Troponin I 10.653 ng/mL (< 0.028) H* 02/19/20 08:15 - Telemetry Sinus rhythms and dysrhythmias: sinus rhythm - Assessment/Plan Assessment/Plan: 1. Acute inferior STEMI 2. Multivessel CAD 3. HTN 4. New onset DMT2 PLAN: - Continue Heparin gtt - Plan for surgery Tomorrow
[2020-02-21] MEDS: Atorvastatin Calcium 40 MG TAB PO SCH (20:59)
--- NOTE | 2020-02-21 22:27 | EKG ---
Test Reason : C/O CHEST PAIN Blood Pressure : / mmHG Vent. Rate : 081 BPM Atrial Rate : 081 BPM P-R Int : 162 ms QRS Dur : 110 ms QT Int : 398 ms P-R-T Axes : 056 054 082 degrees QTc Int : 462 ms Normal sinus rhythm ST elevation consider inferior injury or acute infarct * ACUTE [place] * Consider right ventricular involvement in acute inferior infarct Abnormal ECG No previous ECGs available Confirmed by Faheem GO ([id number]) on 02/21/2020 10:26:48 PM Referred By: MICHELLE Confirmed By:Faheem GO
--- NOTE | 2020-02-21 22:43 | EKG ---
Test Reason : Blood Pressure : / mmHG Vent. Rate : 088 BPM Atrial Rate : 088 BPM P-R Int : 170 ms QRS Dur : 110 ms QT Int : 368 ms P-R-T Axes : 052 059 073 degrees QTc Int : 445 ms Normal sinus rhythm Inferior infarct , possibly acute * ACUTE [place] * Consider right ventricular involvement in acute inferior infarct Abnormal ECG No previous ECGs available Confirmed by Faheem GO ([id number]) on 02/21/2020 10:43:26 PM Referred By: MICHELLE Confirmed By:Faheem GO
[2020-02-22 04:23] LABS: #Eosinphils 0.3 thou/uL (0.0-0.7); #Lymphocytes 3.4 thou/uL (1.20-3.40); #Monocytes 0.9 thou/uL (0.11-0.59); #Neutrophils 8.9 thou/uL (1.40-6.50); %Basophils 0.3 % (0.0-1.0); %Eosinophils 2.5 % (0.0-10.0); %Lymphocytes 25.1 % (21.0-51.0); %Monocytes 6.7 % (0.0-10.0); %Neutrophils 65.4 % (42.0-75.0); Hemoglobin 13.8 g/dL (14.0-18.0); Mean Corpuscular HGB CONC 34.7 g/dL (32.0-36.0); Mean Corpuscular Hemoglobin 31.2 pg (27.0-31.0); Mean Corpuscular Volume 89.9 fL (78.0-98.0); Mean Platelet Volume 8.3 fL (7.4-10.4); Platelet Count 275 thou/uL (130-400); Red Blood Cell (RBC) Count 4.41 mill/uL (4.70-6.10); White Blood Cell (WBC) Count 13.6 thou/uL (4.8-10.8)
[2020-02-22] MEDS: Lisinopril 2.5 MG TAB PO SCH (05:33)
[2020-02-22] MEDS: Carvedilol 6.25 MG TAB PO SCH (05:34)
[2020-02-22] MEDS ORDERED: Dexmedetomidine 200 MCG/2 ML VIAL ONE (06:31)
[2020-02-22] MEDS ORDERED: Midazolam HCl 2 mg/2 ml Vial ONE (06:31)
[2020-02-22] MEDS ORDERED: Fentanyl 100 MCG/2 ML VIAL ONE (06:31)
[2020-02-22] MEDS ORDERED: Midazolam HCl 5 mg/5 ml Vial ONE (06:31)
[2020-02-22] MEDS ORDERED: Vecuronium 10 MG VIAL ONE ×3 (06:31→14:16)
[2020-02-22] MEDS ORDERED: Heparin 10,000 UNITS/1 ML VIAL 30,000 UNITS in Sodium Chloride 0.9% 1,000 ML FS SCH (06:45)
[2020-02-22] MEDS ORDERED: CEFAZOLIN 2 GM in Premix Bag 1 BAG IVPB SCH (07:15)
[2020-02-22] MEDS ORDERED: Albumin 5% 500 ML ONE (08:22)
[2020-02-22] MEDS ORDERED: Insulin Regular 300 UNITS/3 ML VIAL ONE (08:26)
[2020-02-22] MEDS ORDERED: Papaverine 60 MG/2 ML VIAL ONE ×2 (09:15→09:35)
[2020-02-22] MEDS ORDERED: Calcium Chloride 1 GM/10 ML Abboject SYRINGE ONE (09:35)
[2020-02-22] MEDS ORDERED: Norepinephrine 4 MG/4 ML VIAL ONE (09:35)
[2020-02-22] MEDS ORDERED: EPHEDRINE 25 MG/5 ML SYRINGE ONE (09:35)
[2020-02-22] MEDS ORDERED: Cardioplegic Soln 1,000 ML BAG ONE (09:35)
[2020-02-22] MEDS ORDERED: Glycopyrrolate 0.2 MG/ML 5 ML SYRINGE ONE (09:35)
[2020-02-22] MEDS ORDERED: Lidocaine 2% PF 5 ML VIAL ONE (09:35)
[2020-02-22] MEDS ORDERED: Magnesium Sulfate 1 GM/2 ML VIAL ONE (09:35)
[2020-02-22] MEDS ORDERED: Protamine Sulfate 250 MG/25 ML VIAL ONE (09:35)
[2020-02-22] MEDS ORDERED: Heparin 5,000 UNITS/ML VIAL ONE (09:35)
[2020-02-22] MEDS ORDERED: Thrombin 5000 UNITS/5 ML VIAL ONE (09:35)
[2020-02-22] MEDS ORDERED: Ketorolac Tromethamine 30 MG/ML VIAL ONE (09:35)
[2020-02-22] MEDS ORDERED: Ondansetron PF 4 MG/2 ML Vial ONE (09:35)
[2020-02-22] MEDS ORDERED: PHENYLEPHRINE-NS 100 MCG/ML 10 ML SYRINGE ONE ×4 (09:35→13:08)
[2020-02-22] MEDS ORDERED: Heparin 30,000 units/30 ml VIAL ONE (09:35)
[2020-02-22] MEDS ORDERED: Nitroglycerin 50 MG/250 ML BOT ONE (09:35)
[2020-02-22] MEDS ORDERED: Dexamethasone 20 MG/5 ML VIAL ONE (09:35)
[2020-02-22] MEDS ORDERED: Sodium Bicarb 50 MEQ/50 ML Abboject 8.4% SYRINGE ONE (09:35)
[2020-02-22] MEDS ORDERED: Aminocaproic Acid 5 GM/20 ML VIAL ONE (09:35)
[2020-02-22] MEDS ORDERED: Potassium Chloride 60 MEQ/30 ML VIAL ONE (09:35)
[2020-02-22] MEDS ORDERED: Milrinone 10 MG/10 ML VIAL ONE (09:59)
[2020-02-22] MEDS: Aspirin Chewable 81 MG TAB PO SCH (11:27)
[2020-02-22] MEDS ORDERED: CEFAZOLIN 1 GM VIAL ONE (12:11)
--- NOTE | 2020-02-22 13:40 | PQF ---
DATE: 02-21-20 ATTN: DR. HAYDE MARTINEZ Please exercise your independent, professional judgment in responding to the clarification form. Clinical indicators are provided on the bottom of this form for your review Please check appropriate box(s): [ ] Hyponatremia [ X ] Insignificant Lab Values [ ] Other diagnosis [ ] Unable to determine In addition, please specify: Present on Admission (POA): [ ] Yes [ ] No [ ] Unable to determine For continuity of documentation, please document condition throughout progress notes and discharge summary. Thank You. CLINICAL INDICATORS - SIGNS / SYMPTOMS/ LABS are present in the medical record: SODIUM: 02-19-20: 133 02-20-20: 133 RISK FACTORS: H&P 02-19-20: INFERIOR STEMI, NEWLY DIAGNOSED TYPE 2 DIABETES, HTN TREATMENT: SERIES OF LABS 02-19-20 AND 02-20-20 (This form is maintained as a part of the permanent medical record) 2014 [employer], [employer]. All Rights Reserved [email or web address] [email or web address] Office: [phone] KRISTOFER
--- NOTE | 2020-02-22 16:13 | PDOC.CPN ---
- Subjective Date: 02/22/20 Time: 16:13 Interval history: He underwent successful CABG x 5. Currently intubated and starting to wake up. - Review of Systems ROS unobtainable: due to endotracheal tube - Objective Allergies/Adverse Reactions: Allergies Allergy/AdvReac Type Severity Reaction Status Date / Time No Known Allergies Allergy Unverified 02/19/20 02:45 Visit Medications: Current Medications Acetaminophen/Codeine Phosphate (Tylenol #3) 1 tab PO Q4H PRN PRN Reason: Mild Pain (1-3) Last Admin: 02/19/20 11:13 Dose: 1 tab Aspirin (Aspirin Chewable) 81 mg PO DAILY [facility] Last Admin: 02/22/20 11:27 Dose: Not Given Atorvastatin Calcium (Lipitor) 40 mg PO [facility] Carvedilol (Coreg) 12.5 mg PO BID-[facility] Last Admin: 02/22/20 05:34 Dose: 12.5 mg Dextrose/Water (Dextrose 50%) 25 gm SLOW IVP PRN PRN PRN Reason: Hypoglycemia Glucagon (Glucagon) 1 mg IM PRN PRN PRN Reason: Hypoglycemia Cefazolin Sodium/Dextrose 2 gm (/ Device) 50 mls @ 100 mls/hr IVPB ONCALL-OR [facility] Dextrose/Water (D5w) 1,000 mls @ 0 mls/hr IV .Q0M PRN PRN Reason: Hypoglycemia Insulin Human Regular (Humulin R) 0 units SC .MODERATE SLIDING SC PRN PRN Reason: Moderate Correctional Scale Last Admin: 02/21/20 16:48 Dose: 8 unit Lisinopril (Zestril) 2.5 mg PO DAILY [facility] Last Admin: 02/22/20 05:33 Dose: 2.5 mg Miscellaneous Information (Communication Order-Pharmacy) 1 each FS ASDIR [facility] Morphine Sulfate (Morphine) 2 mg SLOW IVP Q4H PRN PRN Reason: Moderate Chest Pain (4-6) Nitroglycerin (Nitrostat) 0.4 mg SL Q5MIN PRN PRN Reason: Chest Pain Last Admin: 02/21/20 12:08 Dose: 0.4 mg Pantoprazole Sodium (Protonix) 40 mg PO DAILY [facility] Last Admin: 02/22/20 11:27 Dose: Not Given Sodium Chloride (Flush - Normal Saline) 10 ml IVF PRN PRN PRN Reason: Saline Flush Tramadol HCl (Ultram) 50 mg PO Q6H PRN PRN Reason: Mild Pain (1-3) Vital Signs & Weight: Vital Signs Temp Pulse Resp BP BP Pulse Ox 02/22/20 05:34 134/62 02/22/20 05:33 73 134/62 02/22/20 04:24 97.7 F 73 20 134/62 95 Weight 253 lb 1.6 oz - Physical Exam General: no apparent distress HEENT: mucus membranes moist Neck: supple neck Cardiac: regular rate and rhythm Lungs: clear to auscultation Neuro: other (sedated.) Abdomen: decreased bowel sounds Extremities: 1+ LE edema Skin: clear Musculoskeletal: no pain - Labs Result Diagrams: 02/22/20 16:10 02/22/20 16:10 Troponin/CKMB CK-MB (CK-2) 33.2 ng/mL (0-6.6) H* 02/19/20 08:14 Troponin I 10.653 ng/mL (< 0.028) H* 02/19/20 08:15 - Telemetry Sinus rhythms and dysrhythmias: sinus rhythm - Assessment/Plan Assessment/Plan: 1. Acute inferior STEMI 2. Multivessel CAD 3. S/P CABG x 5 4. HTN 5. New onset DMT2 PLAN: - Continue supportive care. - Wean pressors. - Critical Care Time Critical care time (mins): 30
[2020-02-22 16:32] LABS: Actual Bicarbonate (HCO3a) 22.6 mEq/L (22-28); Base Excess (BEa) -1.1 mEq/L (-2.0 to +3.0); CO2 Tension 33.9 mmHg (35.0-45.0); Calcium, Ionized 1.11 mmol/L (1.12-1.30); Hemoglobin (Hb) 10.7 g/dL (14.0-18.0); O2 Tension (PaO2) 92.5 mmHg (80.0-100.0); pH, Arterial 7.44 (7.35-7.45)
[2020-02-22] MEDS ORDERED: Promethazine HCl 25 MG/ML VIAL IM PRN (16:32)
[2020-02-22] MEDS ORDERED: Acetaminophen 325 MG TAB PO PRN (16:32)
[2020-02-22] MEDS ORDERED: Bisacodyl 10 MG SUPP PR PRN (16:32)
[2020-02-22] MEDS ORDERED: niCARdipine 25 MG in Sodium Chloride 0.9% 250 ML 250 ML IVPB PRN (16:32)
[2020-02-22] MEDS ORDERED: Morphine 2 MG/ML SYRINGE SLOW IVP PRN (16:32)
[2020-02-22] MEDS ORDERED: Nitroglycerin 50 MG/250 ML BOT 250 ML IVPB PRN (16:32)
[2020-02-22] MEDS ORDERED: Post-Op Insulin Drip Protocol IVPB ONE (16:32)
[2020-02-22] MEDS ORDERED: Guaifenesin DM 100-10/5 ML UDCUP PO PRN (16:32)
[2020-02-22] MEDS ORDERED: Ondansetron PF 4 MG/2 ML Vial IVP PRN (16:32)
[2020-02-22] MEDS ORDERED: Potassium Chloride 20 MEQ/100 ML PREMIX BAG IVPB PRN (16:32)
[2020-02-22] MEDS ORDERED: hydrALAZINE 20 MG/ML VIAL SLOW IVP PRN (16:32)
[2020-02-22] MEDS ORDERED: Bisacodyl 5 MG TAB PO PRN (16:32)
[2020-02-22] MEDS ORDERED: Norepinephrine 8 MG/0.9% NS 250 ML IVPB PRN (16:32)
[2020-02-22] MEDS ORDERED: Fentanyl 100 MCG/2 ML VIAL SLOW IVP PRN ×2 (16:32)
[2020-02-22] MEDS ORDERED: Hetastarch 6% 500 ML 500 ML IVPB PRN (16:32)
[2020-02-22] MEDS ORDERED: Mag-Al 1200 mg/1200 mg/30 ML UDCUP PO PRN (16:32)
[2020-02-22] MEDS ORDERED: HUMULIN R 100 UNITS in Sodium Chloride 0.9% 100 ML IVPB SCH (16:34)
[2020-02-22] MEDS ORDERED: Dextrose 50% Abboject 50 ML SYRINGE SLOW IVP PRN (16:34)
[2020-02-22] MEDS ORDERED: Dextrose 5% in Water 1,000 ML IV PRN (16:34)
[2020-02-22] MEDS ORDERED: Insulin Regular 300 UNITS/3 ML VIAL SC PRN (16:34)
[2020-02-22 16:37] LABS: ALV-art Gradient 221.625 (0-20); Puncture Site ALINE
--- NOTE | 2020-02-22 16:43 | RAD ---
PORTABLE CHEST ONE VIEW: 02/22/20 at 4:11 p.m. HISTORY: Post open heart surgery. Respiratory failure. FINDINGS/IMPRESSION: Comparison is made with exam of 02/19/2020. Interval changes of median sternotomy is seen. There is an endotracheal tube with tip at the level of the clavicular heads. A nasogastric tube can be traced into the stomach. There is a right subclavian central line with tip in the projection of the right atrium. Mediastinal drain is present. There is mild opacity in the left lower lung. No pneumothoraces or large effusions are seen. POS: MZA
[2020-02-22 16:48] LABS: Anion Gap 11 mmol/L (10-20); BUN (Urea Nitrogen) 13 mg/dL (8.4-25.7); Calc. Creatinine Clearance 150 mL/min (70-130); Calcium 8.4 mg/dL (7.8-10.44); Carbon Dioxide 26 mmol/L (22-29); Chloride 104 mmol/L (98-107); Estimated GFR-MDRD 90; Glucose 122 mg/dL (70-105); Potassium 4.2 mmol/L (3.5-5.1); Sodium 137 mmol/L (136-145)
[2020-02-22 16:57] LABS: INR-International Normal Ratio 1.2; PTT 34.5 SEC (22.9-36.1); Prothrombin Time 15.3 SEC (12.0-14.7)
[2020-02-22 17:08] LABS: Hemoglobin 10.6 g/dL (14.0-18.0); Mean Corpuscular HGB CONC 35.2 g/dL (32.0-36.0); Mean Corpuscular Hemoglobin 31.8 pg (27.0-31.0); Mean Corpuscular Volume 90.5 fL (78.0-98.0); Mean Platelet Volume 7.9 fL (7.4-10.4); Platelet Count 238 thou/uL (130-400); RBC Distribution Width 12.7 % (11.5-14.5); Red Blood Cell (RBC) Count 3.35 mill/uL (4.70-6.10); White Blood Cell (WBC) Count 22.1 thou/uL (4.8-10.8)
[2020-02-22 17:24] LABS: Band 57 % (5-11); Lymphocytes 6 % (21-51); MDiff Complete? YES; Metamyelocyte 1 % (0-0); Monocytes 4 % (0-10); Myelocyte 2 % (0-0); Neutrophil 30 % (42-75); Platelet Morphology Comment Appears Adequate; Polychromasia SLIGHT = 2-3 cells (100X) (0-2/hpf); Reflex for Review?? NO
--- NOTE | 2020-02-22 18:43 | OP ---
DATE OF PROCEDURE: 02/22/2020 PROCEDURES PERFORMED: Coronary artery bypass grafting x5 with left internal mammary artery to the distal left anterior descending artery, reverse greater saphenous vein graft from the aorta to the apical left anterior descending artery, reverse greater saphenous vein graft from the aorta to the first diagonal, reverse greater saphenous vein graft from aorta to the posterior descending artery, and left radial artery from the aorta to the first obtuse marginal. PREOPERATIVE DIAGNOSIS: Coronary artery disease, status post inferior ST- elevation myocardial infarction with postinfarction angina. POSTOPERATIVE DIAGNOSIS: Coronary artery disease, status post inferior ST- elevation myocardial infarction with postinfarction angina. PHYSICIST CRYOGENICS: Lexa Olmedo MD ANESTHESIA: General endotracheal anesthesia. INDICATION FOR PROCEDURE: The patient is a 59-year-old man, who over the last few weeks or months, has noticed that his blood pressure has been creeping up. He developed chest pain associated with the episodes of significant hypertension and presented to the emergency room, but refused admission or transfer in spite of a positive troponin. At that time, he did not have any EKG changes, but the following day, he had recurrence of pain, this time associated with inferior ST-elevation , and he agreed to transfer. His cardiac catheterization demonstrated severe 3-vessel coronary artery disease with decreased LV function. His chest pain was largely brought under control, but he had a couple of very brief episodes that were self-limited of angina with minimal exertion. He is now taken to the operating room for surgical revascularization. FINDINGS: Pump time 178 minutes. Cross-clamp time 77 minutes. Good quality of DARIO, radial artery, and saphenous vein. All of the coronaries were diffusely diseased and of poor quality. The distal LAD was about 1.5 to 2 mm vessel. The apical branch of the LAD that was grafted was about 1 to 1.5 mm. The first diagonal was about 1.5 mm. The obtuse marginal was about 2 mm. The PDA was about 1 to 1.5 mm. The patient's heart was large with difficult exposure of the ascending aorta. He had a large hemorrhagic area inferolaterally, consistent with a recent transmural infarction. COMPLICATIONS: An arterial vessel in the gastroepiploic arcade and a little further distally in the lesser omentum were injured passing the ventricular pacing wires , requiring opening the upper abdomen to allow for oversewing them. DESCRIPTION OF PROCEDURE: After informed consent was obtained, the patient was taken to the operating room, placed in supine position on the operating table. After the induction of general anesthesia, the patient's left greater saphenous vein was ultrasonographically mapped and marked. His right upper chest was prepped and draped in sterile fashion and he was placed in Trendelenburg. A triple lumen central line kit was used to place a right subclavian central line by the Seldinger technique. All 3 ports easily aspirated and flushed. Modified Ruddy testing was performed with the pulse oximeter confirming adequate perfusion of the fingertips with the radial artery compressed. The patient's torso, groins, left upper and bilateral lower extremities were prepped and draped in sterile fashion, and paraprofessional education assistant harvested greater saphenous vein from the left lower extremity endoscopically using a port site just above the knee. The vein in the thigh proved to be a dual system. Both branches could be harvested endoscopically, although one counter incision in the mid thigh was necessary to complete that portion of the harvest. Likewise, while the vein was endoscopically mobilized and dissected below the knee, it had to be converted to a skin bridge technique to complete the harvest. The vein thus harvested was in essence, a so-called natural Y graft. It was prepared for use as a graft, leaving it intact, and the harvest sites were closed in layers of subcutaneous and subcuticular Vicryl. The radial artery was exposed through a vertical incision at the left wrist. It was isolated sufficiently to allow for a test occlusion of the radial artery proximally in the wound. Distally in the wound, the radial artery still had a palpable pulse. Incrementally, the radial artery was exposed, extending the skin incision up near the antecubital fossa to allow for a skeletonized harvest of the radial artery from the wrist to near its origin from the brachial artery. The radial artery proximally was doubly ligated and divided. There was good backbleeding through the radial artery. It was then doubly ligated and divided distally. The distal tip of the radial artery was cannulated with a small olive-tipped needle and papaverine solution was instilled intraluminally to relieve spasm and to assess for adequacy of control of side branches. One avulsed branch was controlled with a 7-0 Prolene suture. The radial artery was then placed in a papaverine-soaked sponge. The wound was inspected for hemostasis and closed in layers of subcutaneous and subcuticular Vicryl. The Dermabond was applied and an Marcial wrap was used to dress the hand and forearm and the arm was tucked. Median sternotomy was performed. The left internal mammary artery was harvested as a skeletonized in-situ graft from the level of the xiphoid to just above the level of the subclavian vein through an extrapleural exposure. The patient was heparinized. The mammary was ligated and divided distally. There was excellent flow through the mammary, which was instilled intraluminally with papaverine solution. The mammary bed was inspected for hemostasis. The DARIO retractor was then replaced with a Catalan retractor. The pericardium was opened and marsupialized. The pericardium was quite snug and the anesthesiologist commented that the patient's blood pressure carly some upon opening the pericardium. There was scant pericardial fluid, however. The heart was rather large and exposure of the ascending aorta was problematic. The pericardial reflection on aorta was taken down to allow for placement of a pursestring in the base of the arch, after having palpated the aorta to verify that it was soft, a pursestring was placed in the right atrium at the vestigial appendage, a 20-Lao femoral arterial cannula was used to cannulate the arch and a standard dual-stage venous cannula was used for venous cannulation. The plane between the aorta and the pulmonary artery was developed. Cardiopulmonary bypass was instituted and the patient was systemically cooled. The heart was examined and the vessels to be bypassed were identified. A longitudinal slit was made in the pericardium anterior to the left phrenic nerve, through which the mammary could be passed. An aortic cross-clamp was applied and cardioplegia was administered through an aortic root needle. When arrest had been achieved, attention was turned to the apex. Hard plaque anteriorly at the apex was palpated that the groove in the fat associated with that area was explored and more leftward branch ran superficially and though not a particularly good vessel was adequate, a brief attempt was made to explore the more rightward medial branch as angiographically, it appeared to be the bigger vessel, but it seemed to dive deep and it was opted to abandon further attempts of the exposure of it as both branches communicated with each other. Left lateral branch was opened and the saphenous vein was anastomosed to it end-to- side with running 6-0 Prolene suture and the anastomosis was tested by flushing cold cardioplegia down the graft, that segment of saphenous vein was amputated and the stump ligated and then that long intact piece of vein was then used to graft the PDA fairly distally, where it was readily visible on the epicardial surface. The circumflex system was then explored. The first OM was opened just proximal to the terminal bifurcation, where it was readily visible on the epicardial surface and accessible. The radial artery was anastomosed there with running 7-0 Prolene. The diagonals on the anterior surface of the heart were examined and a fairly high one appeared to correlate with the reasonably good size diagonal that communicated with an isolated segment of LAD was explored, it had to be followed fairly proximally to get where it was about a 1.5 mm vessel. It was grafted end-to-side with running 7-0 Prolene suture and reversed saphenous vein. The distal LAD was then opened at a relative soft spot, a few centimeters proximal to the apical grafting site, the mammary is anastomosed to it with running 7-0 Prolene and tacked to the epicardium. The aortic cross-clamp was replaced with a partial occluding clamp and two aortotomies were made in the ascending aorta with a scalpel and punch. The PDA graft was brought along the right side of the heart and anastomosed to the more proximal aortotomy and the diagonal graft was brought along the left side of the heart and anastomosed to the more distal aortotomy. The partial occluding clamp was loosened slightly to distend those grafts and venotomy was made in the romero of the RCA proximal anastomosis. The LAD graft was allowed to drape leftward, trimmed to length and spatulated and anastomosed to the romero of the PDA, proximal anastomosis with running 6-0 Prolene. The romero of the proximal vein graft anastomosis to the diagonal was opened and the radial artery graft to the OM was anastomosed to it with running 7-0 Prolene. The radial artery graft was allowed to backbleed and then a bulldog was applied at its proximal anastomosis. Partial occluding clamp was removed. The vein grafts were de-aired and the bulldogs removed from all of the grafts. The anastomoses were inspected for hemostasis. The posterior pericardial drain was brought out through a separate incision and secured with suture. Right atrial and right ventricular temporary epicardial pacing wires were placed passing the atrial wire through the fascia out to the skin was uneventful, but upon removing my finger after passing the ventricular wires, bright red blood followed. Exposure required removal of the pacing wires from where they had been passed through the skin, that area was initially packed off with the anticipation that the epigastric vessels had been injured and that tamponade would prove sufficient. However, upon further exploration, it could be appreciated that the blood was coming through a small hole in the peritoneum. The peritoneum was opened there and eventually the skin and fascial incision were extended about 3 or 4 cm further to allow for adequate exposure. There was a fair amount of blood at the upper abdomen and upon clearing that blood, pulsatile bleeding from the gastroepiploic arcade directly anteriorly could be appreciated. Fine Prolene was used to make a figure-of- eight suture orienting it transversely, which initially appeared to control the bleeding. Further exploration showed a second site distal to that in the lesser omentum, that had arterial bleeding, this was oversewn with a fine Prolene which did seem to prove adequate. Further inspection of the suture at the greater curvature of the stomach showed that there was still a considerable bleeding, although it was not grossly pulsatile, it was still bright red. Additional sutures were placed initially trying to maintain a transverse orientation, but ultimately this required incision of the lesser omentum anteriorly to more precisely identify the location of the bleeding and a [id number] suture with 3-0 Prolene oriented from inferior to superior , that largely brought the bleeding under control, but there was still oozing, that area was packed off. The patient's hemodynamics responded to fluid administration. Cardiac contractility appeared adequate. It was opted to wean from bypass, decannulate and reverse heparin and then reinspect the lesser omentum. The patient was easily from cardiopulmonary bypass after passing the ventricular wires. The cannulae were removed, pursestrings secured, and protamine was administered. Reinspection of the lesser omentum after protamine and blood products had been administered and showed adequate hemostasis. Peritoneum was closed with a Vicryl. An anterior mediastinal drain was placed and secured to the skin with suture. It was not feasible to close the pericardium. The very generous thymic fat pad was draped over the aorta and the epicardial fat pad intact to the pericardium. Superiorly, the pericardial fat and pericardium were loosely tacked back at the diaphragmatic surface. The cut surfaces of the sternum were treated with platelet rich GPS and vancomycin paste, and the sternum was reapproximated with #7 stainless steel wires. The linea alba was reapproximated with #1 PDS and the pectoralis fascia was reapproximated with #1 PDS after having irrigated the soft tissues and treated it with platelet poor GPS. The subcutaneous tissue was reapproximated with 2-0 Vicryl. The skin was closed with 3-0 Vicryl subcuticular stitch. The wounds were dressed and the patient was taken to the intensive care unit in stable condition. Job ID: [id number] [facility]
[2020-02-22] MEDS: Sodium Chloride 0.9% 1,000 ML IV SCH (19:28)
[2020-02-22] MEDS: Ketorolac Tromethamine 30 MG/ML VIAL IVP SCH (19:59)
[2020-02-22] MEDS ORDERED: Atorvastatin Calcium 40 MG TAB PO SCH (21:00)
[2020-02-22] MEDS: Docusate 100 MG CAP PO SCH (22:06)
[2020-02-22 22:08] LABS: Hemoglobin 10.3 g/dL (14.0-18.0)
[2020-02-22 22:22] LABS: Potassium 3.9 mmol/L (3.5-5.1)
[2020-02-23] MEDS: Ketorolac Tromethamine 30 MG/ML VIAL IVP SCH ×3 (00:19→11:10)
[2020-02-23 03:39] LABS: Actual Bicarbonate (HCO3a) 22.3 mEq/L (22-28); CO2 Tension 32.4 mmHg (35.0-45.0); Calcium, Ionized 1.09 mmol/L (1.12-1.30); Carboxyhemoglobin (COHb) 0.5 gm% (0.0-3.0); Hemoglobin (Hb) 10.4 g/dL (14.0-18.0); O2 Tension (PaO2) 102.3 mmHg (80.0-100.0); Potassium - ABG Lab 3.84 mmol/L (3.70-5.30); pH, Arterial 7.46 (7.35-7.45)
[2020-02-23 03:51] LABS: Puncture Site LINE
[2020-02-23 04:09] LABS: #Lymphocytes 2.3 thou/uL (1.20-3.40); #Neutrophils 11.9 thou/uL (1.40-6.50); %Basophils 0.2 % (0.0-1.0); %Eosinophils 0.2 % (0.0-10.0); %Monocytes 6.5 % (0.0-10.0); %Neutrophils 78.1 % (42.0-75.0); Hemoglobin 10.4 g/dL (14.0-18.0); Mean Corpuscular HGB CONC 35.3 g/dL (32.0-36.0); Mean Corpuscular Hemoglobin 31.6 pg (27.0-31.0); Mean Corpuscular Volume 89.3 fL (78.0-98.0); Mean Platelet Volume 8.2 fL (7.4-10.4); Platelet Count 211 thou/uL (130-400); RBC Distribution Width 12.9 % (11.5-14.5); Red Blood Cell (RBC) Count 3.29 mill/uL (4.70-6.10); White Blood Cell (WBC) Count 15.2 thou/uL (4.8-10.8)
[2020-02-23 04:27] LABS: Anion Gap 17 mmol/L (10-20); BUN (Urea Nitrogen) 16 mg/dL (8.4-25.7); Calc. Creatinine Clearance 170 mL/min (70-130); Calcium 8.2 mg/dL (7.8-10.44); Carbon Dioxide 19 mmol/L (22-29); Chloride 107 mmol/L (98-107); Estimated GFR-MDRD Greater than 90; Glucose 107 mg/dL (70-105); Sodium 139 mmol/L (136-145)
[2020-02-23] MEDS ORDERED: Insulin Glargine 9 UNITS in Pre-Filled Syringe 1 EACH SC SCH (07:15)
--- NOTE | 2020-02-23 07:38 | RAD ---
PORTABLE CHEST 1 VIEW: DATE: 02/23/2020. TIME: 4:35 AM. HISTORY: Post open heart surgery. FINDINGS/IMPRESSION: There has been interval removal of the endotracheal and nasogastric tubes since the previous day's ex am. The remainder of the exam is otherwise stable. POS: HARI
[2020-02-23] MEDS: Aspirin Chewable 81 MG TAB PO SCH (08:08)
[2020-02-23] MEDS: Docusate 100 MG CAP PO SCH ×2 (08:08→19:50)
[2020-02-23] MEDS: Furosemide 40 MG/4 ML VIAL SLOW IVP SCH ×2 (08:14→15:59)
[2020-02-23] MEDS ORDERED: Metolazone 5 MG TAB PO SCH (08:15)
[2020-02-23] MEDS: Sodium Chloride 0.9% 1,000 ML IV SCH (08:17)
[2020-02-23] MEDS ORDERED: Mineral Oil ENEMA PR PRN (12:40)
[2020-02-23] MEDS ORDERED: Nitroglycerin 0.4 MG TAB (25 Tab Bottle) SL PRN (12:40)
[2020-02-23] MEDS ORDERED: Bisacodyl 10 MG SUPP PR PRN (12:40)
[2020-02-23] MEDS ORDERED: Artificial Tears 18 DROP/0.9 ML EA EYE PRN (12:40)
[2020-02-23] MEDS ORDERED: diphenhydrAMINE 25 MG CAP PO PRN (12:40)
[2020-02-23] MEDS ORDERED: Guaifenesin DM 100-10/5 ML UDCUP PO PRN (12:40)
[2020-02-23] MEDS ORDERED: Zolpidem Tartrate 5 MG TAB PO PRN (12:40)
[2020-02-23] MEDS ORDERED: Mag-Al 1200 mg/1200 mg/30 ML UDCUP PO PRN (12:40)
[2020-02-23] MEDS ORDERED: Bisacodyl 5 MG TAB PO PRN (12:40)
[2020-02-23] MEDS: Insulin Regular 300 UNITS/3 ML VIAL SC PRN (12:45)
--- NOTE | 2020-02-23 14:14 | PDOC.CPN ---
- Subjective Date: 02/23/20 Time: 14:12 Interval history: He is doing much better today. Extubated now. Sore chest. - Review of Systems General: denies: fever/chills, weight/appetite/sleep changes, night sweats, fatigue Respiratory: reports: cough. denies: congestion, shortness of breath, exercise intolerance Cardiovascular: reports: chest pain. denies: palpitation, edema, paroxysmal nocturnal dyspnea, orthopnea Gastrointestinal: denies: nausea, vomiting, diarrhea, constipation, abd pain, GI bleeding Musculoskeletal: denies: pain, tenderness, stiffness, swelling, arthritis/ arthralgias Neurological: denies: numbness, syncope, seizure, weakness - Objective Allergies/Adverse Reactions: Allergies Allergy/AdvReac Type Severity Reaction Status Date / Time No Known Allergies Allergy Unverified 02/19/20 02:45 Visit Medications: Current Medications Hydrocodone Bitart/Acetaminophen ([place] 5/325) 1 tab PO Q4H PRN PRN Reason: Moderate Pain (4-6) Hydrocodone Bitart/Acetaminophen ([place] 5/325) 2 tab PO Q4H PRN PRN Reason: Severe Pain (7-10) Al Hydroxide/Mg Hydroxide (Maalox) 30 ml PO Q4H PRN PRN Reason: Indigestion Albuterol/Ipratropium (Duoneb) 3 ml NEB Q6H PRN PRN Reason: SHORTNESS OF BREATH Artificial Tears (Tears Naturale) 0 drop EA EYE PRN PRN PRN Reason: Dry Eyes Aspirin (Aspirin Chewable) 81 mg PO DAILY [facility] Last Admin: 02/23/20 08:08 Dose: 81 mg Atorvastatin Calcium (Lipitor) 40 mg PO HS [facility] Last Admin: 02/22/20 22:06 Dose: Not Given Bisacodyl (Dulcolax) 10 mg PO Q12H PRN PRN Reason: Constipation Bisacodyl (Dulcolax) 10 mg MD Q12H PRN PRN Reason: Constipation Dextrose/Water (Dextrose 50%) 25 gm SLOW IVP PRN PRN PRN Reason: PER HYPOGLYCEMIC PROTOCOL Diphenhydramine HCl (Benadryl) 25 mg PO Q6H PRN PRN Reason: Itching & Insomnia or Tom Sameer Docusate Sodium (Colace) 100 mg PO BID [facility] Last Admin: 02/23/20 08:08 Dose: 100 mg Furosemide (Lasix) 40 mg SLOW IVP 0900,1600 [facility] Stop: 02/23/20 18:00 Last Admin: 02/23/20 08:14 Dose: 40 mg Glucagon (Glucagon) 1 mg SC PRN PRN PRN Reason: PER HYPOGLYCEMIC PROTOCOL Guaifenesin/Dextromethorphan (Robitussin Dm) 15 ml PO Q4H PRN PRN Reason: Cough Dextrose/Water (D5w) 1,000 mls @ 0 mls/hr IV INF PRN PRN Reason: PRN HYPOGLYCEMIC PROTOCOL Insulin Human Regular (Humulin R) 0 units SC .AGGRESSIVE SLIDING PRN; Protocol PRN Reason: AGGRESSIVE SLIDING SCALE Last Admin: 02/23/20 12:45 Dose: 6 unit Mineral Oil (Fleet Mineral Oil) 133 ml MD DAILYPRN PRN PRN Reason: Constipation Nitroglycerin (Nitrostat) 0.4 mg SL Q5MIN PRN PRN Reason: Chest Pain Ondansetron HCl (Zofran) 4 mg IVP Q6H PRN PRN Reason: Nausea/Vomiting Pantoprazole Sodium (Protonix) 40 mg PO DAILY [facility] Last Admin: 02/23/20 08:08 Dose: 40 mg Sodium Chloride (Flush - Normal Saline) 10 ml IVF Q12HR [facility] Last Admin: 02/23/20 08:18 Dose: 10 ml Zolpidem Tartrate (Ambien) 5 mg PO HSPRN PRN PRN Reason: Insomnia Vital Signs & Weight: Vital Signs Temp Pulse Ox 02/23/20 12:00 98.4 F 02/23/20 08:00 97 02/23/20 05:00 98.4 F Weight 253 lb 1.6 oz - Physical Exam General: alert & oriented x3 HEENT: mucus membranes moist Neck: supple neck Cardiac: regular rate and rhythm Lungs: normal breath sounds Neuro: grossly intact Abdomen: active bowel sounds Extremities: 1+ LE edema Skin: clear Musculoskeletal: no pain - Labs Result Diagrams: 02/23/20 03:05 02/23/20 03:05 Troponin/CKMB CK-MB (CK-2) 33.2 ng/mL (0-6.6) H* 02/19/20 08:14 Troponin I 10.653 ng/mL (< 0.028) H* 03/23/20 08:15 - Telemetry Sinus rhythms and dysrhythmias: sinus rhythm - Assessment/Plan Assessment/Plan: 1. Acute inferior STEMI 2. Multivessel CAD 3. S/P CABG x 5 4. HTN 5. New onset DMT2 PLAN: - ASA/statin for life. - BB/ACEI once BP allows. . - PT as tolerated.
--- NOTE | 2020-02-23 16:48 | EKG ---
Test Reason : Blood Pressure : / mmHG Vent. Rate : 094 BPM Atrial Rate : 094 BPM P-R Int : 202 ms QRS Dur : 092 ms QT Int : 368 ms P-R-T Axes : 053 048 061 degrees QTc Int : 460 ms Normal sinus rhythm Cannot rule out Inferior infarct (cited on or before 20-FEB-2020) Cannot rule out Anterior infarct , age undetermined Abnormal ECG When compared with ECG of 20-FEB-2020 07:12, Minimal criteria for Anterior infarct are now Present Nonspecific T wave abnormality now evident in Anterior leads Confirmed by Faheem GO ([id number]) on 02/23/2020 4:47:39 PM Referred By: GAYLE Confirmed By:Faheem GO
[2020-02-23] MEDS: Atorvastatin Calcium 40 MG TAB PO SCH (19:50)
[2020-02-23] MEDS: HYDROcodone/Acetaminophen 5/325 mg Tablet PO PRN (19:51)
[2020-02-24 04:23] LABS: #Eosinphils 0.1 thou/uL (0.0-0.7); #Lymphocytes 3.3 thou/uL (1.20-3.40); #Monocytes 1.5 thou/uL (0.11-0.59); #Neutrophils 9.9 thou/uL (1.40-6.50); %Basophils 0.3 % (0.0-1.0); %Eosinophils 0.9 % (0.0-10.0); %Monocytes 10.1 % (0.0-10.0); %Neutrophils 66.8 % (42.0-75.0); Hemoglobin 9.6 g/dL (14.0-18.0); Mean Corpuscular HGB CONC 34.8 g/dL (32.0-36.0); Mean Corpuscular Hemoglobin 31.6 pg (27.0-31.0); Mean Corpuscular Volume 90.9 fL (78.0-98.0); Mean Platelet Volume 8.7 fL (7.4-10.4); Platelet Count 190 thou/uL (130-400); RBC Distribution Width 13.2 % (11.5-14.5); Red Blood Cell (RBC) Count 3.03 mill/uL (4.70-6.10); White Blood Cell (WBC) Count 14.8 thou/uL (4.8-10.8)
[2020-02-24 04:27] LABS: Anion Gap 16 mmol/L (10-20); BUN (Urea Nitrogen) 20 mg/dL (8.4-25.7); Calc. Creatinine Clearance 131 mL/min (70-130); Carbon Dioxide 24 mmol/L (22-29); Chloride 98 mmol/L (98-107); Estimated GFR-MDRD 77; Glucose 293 mg/dL (70-105); Potassium 3.9 mmol/L (3.5-5.1); Sodium 134 mmol/L (136-145)
[2020-02-24] MEDS: HYDROcodone/Acetaminophen 5/325 mg Tablet PO PRN ×3 (05:29→18:04)
--- NOTE | 2020-02-24 09:12 | RAD ---
CHEST ONE VIEW: HISTORY: Post CABG. COMPARISON: 02/19/2020 FINDINGS: Postoperative changes related to CABG are again noted. Right subclavian central venous catheter and m ediastinal drains remain in place. The cardiac silhouette is enlarged. The pulmonary vasculature is a t the upper limits of normal. No consolidation or definite pleural fluid is seen. IMPRESSION: Stable chest. POS: OFF
[2020-02-24] MEDS: Docusate 100 MG CAP PO SCH ×2 (09:27→20:47)
[2020-02-24] MEDS: Aspirin Chewable 81 MG TAB PO SCH (09:27)
[2020-02-24] MEDS: Insulin Regular 300 UNITS/3 ML VIAL SC PRN ×2 (09:28→11:34)
[2020-02-24] MEDS: Furosemide 40 MG TAB PO SCH (13:45)
[2020-02-24] MEDS: metFORMIN 500 MG TAB PO SCH (18:04)
[2020-02-24] MEDS: Metoprolol Tartrate 25 MG TAB PO SCH (20:47)
[2020-02-24] MEDS: Atorvastatin Calcium 40 MG TAB PO SCH (20:47)
[2020-02-25 03:54] LABS: #Eosinphils 0.3 thou/uL (0.0-0.7); #Lymphocytes 2.6 thou/uL (1.20-3.40); #Monocytes 1.3 thou/uL (0.11-0.59); #Neutrophils 9.9 thou/uL (1.40-6.50); %Basophils 0.3 % (0.0-1.0); %Lymphocytes 18.4 % (21.0-51.0); %Monocytes 9.3 % (0.0-10.0); Hemoglobin 9.5 g/dL (14.0-18.0); Mean Corpuscular HGB CONC 34.8 g/dL (32.0-36.0); Mean Corpuscular Hemoglobin 31.6 pg (27.0-31.0); Mean Corpuscular Volume 90.9 fL (78.0-98.0); Mean Platelet Volume 8.4 fL (7.4-10.4); Platelet Count 209 thou/uL (130-400); RBC Distribution Width 12.8 % (11.5-14.5); Red Blood Cell (RBC) Count 3.02 mill/uL (4.70-6.10); White Blood Cell (WBC) Count 14.1 thou/uL (4.8-10.8)
[2020-02-25 04:15] LABS: Anion Gap 16 mmol/L (10-20); BUN (Urea Nitrogen) 17 mg/dL (8.4-25.7); Calc. Creatinine Clearance 166 mL/min (70-130); Calcium 8.3 mg/dL (7.8-10.44); Carbon Dioxide 28 mmol/L (22-29); Chloride 90 mmol/L (98-107); Estimated GFR-MDRD Greater than 90; Glucose 194 mg/dL (70-105); Potassium 3.4 mmol/L (3.5-5.1); Sodium 131 mmol/L (136-145)
[2020-02-25] MEDS: Aspirin Chewable 81 MG TAB PO SCH (08:35)
[2020-02-25] MEDS: Furosemide 40 MG TAB PO SCH ×2 (08:36→13:43)
[2020-02-25] MEDS: metFORMIN 500 MG TAB PO SCH ×2 (08:36→18:04)
[2020-02-25] MEDS: Docusate 100 MG CAP PO SCH ×2 (08:36→20:28)
[2020-02-25] MEDS: HYDROcodone/Acetaminophen 5/325 mg Tablet PO PRN ×2 (08:36→23:19)
[2020-02-25] MEDS: Metoprolol Tartrate 25 MG TAB PO SCH (08:40)
[2020-02-25] MEDS ORDERED: metFORMIN 500 MG TAB PO SCH (09:05)
[2020-02-25] MEDS ORDERED: Metoprolol Tartrate 25 MG TAB PO SCH (09:05)
--- NOTE | 2020-02-25 09:35 | RAD ---
PORTABLE CHEST: HISTORY: Postop CABG. COMPARISON: 02/24/2020 FINDINGS: Cardiomegaly with postop sternotomy change. Central line is unchanged. Mild vascular engorgement. Str eaky infiltrate or atelectasis in the left lung base. Small effusions may be present. No evidence of significant interval change. POS: AGW
[2020-02-25] MEDS: Insulin Regular 300 UNITS/3 ML VIAL SC PRN (13:43)
[2020-02-25] MEDS ORDERED: Amiodarone 150 MG, Admixture Fee 1 EACH in Dextrose 5% in Water 100 ML IVPB SCH (19:45)
[2020-02-25] MEDS: Atorvastatin Calcium 40 MG TAB PO SCH (20:28)
[2020-02-25] MEDS: Metoprolol Tartrate 50 MG TAB PO SCH ×2 (20:28→20:33)
[2020-02-25] MEDS: Amiodarone 450 MG in Dextrose 5% in Water 250 ML IVPB SCH (20:56)
[2020-02-25 21:14] LABS: ALT (SGPT) 41 U/L (8-55); AST (SGOT) 41 U/L (5-34); Albumin 3.4 g/dL (3.5-5.0); Alkaline Phosphatase 72 U/L (40-110); Bilirubin, Direct 0.5 mg/dL (0.1-0.3); Bilirubin, Total 0.9 mg/dL (0.2-1.2); Magnesium 1.8 mg/dL (1.6-2.6); Protein, Total 6.5 g/dL (6.0-8.3)
[2020-02-26 04:15] LABS: #Basophils 0.1 thou/uL (0.0-0.2); #Eosinphils 0.3 thou/uL (0.0-0.7); #Lymphocytes 4.3 thou/uL (1.20-3.40); #Monocytes 1.4 thou/uL (0.11-0.59); #Neutrophils 11.2 thou/uL (1.40-6.50); %Basophils 0.7 % (0.0-1.0); %Eosinophils 1.9 % (0.0-10.0); %Lymphocytes 24.6 % (21.0-51.0); %Monocytes 8.3 % (0.0-10.0); %Neutrophils 64.5 % (42.0-75.0); Hemoglobin 10.7 g/dL (14.0-18.0); Mean Corpuscular Hemoglobin 31.7 pg (27.0-31.0); Mean Corpuscular Volume 90.5 fL (78.0-98.0); Mean Platelet Volume 7.9 fL (7.4-10.4); Platelet Count 305 thou/uL (130-400); RBC Distribution Width 12.8 % (11.5-14.5); Red Blood Cell (RBC) Count 3.38 mill/uL (4.70-6.10); White Blood Cell (WBC) Count 17.3 thou/uL (4.8-10.8)
[2020-02-26 04:35] LABS: Anion Gap 17 mmol/L (10-20); BUN (Urea Nitrogen) 20 mg/dL (8.4-25.7); Calc. Creatinine Clearance 137 mL/min (70-130); Calcium 8.9 mg/dL (7.8-10.44); Carbon Dioxide 31 mmol/L (22-29); Chloride 85 mmol/L (98-107); Estimated GFR-MDRD 79; Glucose 191 mg/dL (70-105); Potassium 3.1 mmol/L (3.5-5.1); Sodium 130 mmol/L (136-145)
[2020-02-26] MEDS: HYDROcodone/Acetaminophen 5/325 mg Tablet PO PRN (05:13)
[2020-02-26] MEDS: Amiodarone 450 MG in Dextrose 5% in Water 250 ML IVPB SCH (05:35)
[2020-02-26] MEDS: metFORMIN 500 MG TAB PO SCH ×2 (09:02→17:39)
[2020-02-26] MEDS: Aspirin Chewable 81 MG TAB PO SCH (09:02)
[2020-02-26] MEDS: Docusate 100 MG CAP PO SCH ×2 (09:02→20:41)
[2020-02-26] MEDS: Metoprolol Tartrate 50 MG TAB PO SCH ×2 (09:02→20:40)
[2020-02-26] MEDS: Insulin Regular 300 UNITS/3 ML VIAL SC PRN ×2 (09:03→11:11)
--- NOTE | 2020-02-26 17:08 | PDOC.CPN ---
- Subjective Date: 02/26/20 Time: 17:07 Interval history: He is doing well. He went into afib overnight and was started on an amio drip and he converted to sinus since. Passing gas but no BM yet. - Review of Systems General: denies: fever/chills, weight/appetite/sleep changes, night sweats, fatigue Respiratory: denies: cough, congestion, shortness of breath, exercise intolerance Cardiovascular: denies: chest pain, palpitation, edema, paroxysmal nocturnal dyspnea, orthopnea Gastrointestinal: denies: nausea, vomiting, diarrhea, constipation, abd pain, GI bleeding Musculoskeletal: denies: pain, tenderness, stiffness, swelling, arthritis/ arthralgias Neurological: denies: numbness, syncope, seizure, weakness - Objective Allergies/Adverse Reactions: Allergies Allergy/AdvReac Type Severity Reaction Status Date / Time No Known Allergies Allergy Unverified 02/19/20 02:45 Visit Medications: Current Medications Hydrocodone Bitart/Acetaminophen ([place] 5/325) 1 tab PO Q4H PRN PRN Reason: Moderate Pain (4-6) Last Admin: 02/26/20 05:13 Dose: 1 tab Hydrocodone Bitart/Acetaminophen ([place] 5/325) 2 tab PO Q4H PRN PRN Reason: Severe Pain (7-10) Last Admin: 02/25/20 23:19 Dose: 2 tab Al Hydroxide/Mg Hydroxide (Maalox) 30 ml PO Q4H PRN PRN Reason: Indigestion Albuterol/Ipratropium (Duoneb) 3 ml NEB Q6H PRN PRN Reason: SHORTNESS OF BREATH Artificial Tears (Tears Naturale) 0 drop EA EYE PRN PRN PRN Reason: Dry Eyes Aspirin (Aspirin Chewable) 81 mg PO DAILY [facility] Last Admin: 02/26/20 09:02 Dose: 81 mg Atorvastatin Calcium (Lipitor) 80 mg PO HS [facility] Last Admin: 02/25/20 20:28 Dose: 80 mg Bisacodyl (Dulcolax) 10 mg PO Q12H PRN PRN Reason: Constipation Bisacodyl (Dulcolax) 10 mg [place] Q12H PRN PRN Reason: Constipation Dextrose/Water (Dextrose 50%) 25 gm SLOW IVP PRN PRN PRN Reason: PER HYPOGLYCEMIC PROTOCOL Diphenhydramine HCl (Benadryl) 25 mg PO Q6H PRN PRN Reason: Itching & Insomnia or Tom Sameer Docusate Sodium (Colace) 100 mg PO BID [facility] Last Admin: 02/26/20 09:02 Dose: 100 mg Glucagon (Glucagon) 1 mg SC PRN PRN PRN Reason: PER HYPOGLYCEMIC PROTOCOL Guaifenesin/Dextromethorphan (Robitussin Dm) 15 ml PO Q4H PRN PRN Reason: Cough Last Admin: 02/25/20 23:24 Dose: 15 ml Dextrose/Water (D5w) 1,000 mls @ 0 mls/hr IV INF PRN PRN Reason: PRN HYPOGLYCEMIC PROTOCOL Amiodarone HCl 450 mg/ (Dextrose/Water) 259 mls @ 0 mls/hr IVPB INF [facility]; Protocol Last Admin: 02/26/20 05:35 Dose: 259 mls Insulin Human Regular (Humulin R) 0 units SC .AGGRESSIVE SLIDING PRN; Protocol PRN Reason: AGGRESSIVE SLIDING SCALE Last Admin: 02/26/20 11:11 Dose: 9 unit Metformin HCl (Glucophage) 1,000 mg PO BID[facility] Last Admin: 02/26/20 09:02 Dose: 1,000 mg Metoprolol Tartrate (Lopressor) 50 mg PO BID [facility] Last Admin: 02/26/20 09:02 Dose: 50 mg Mineral Oil (Fleet Mineral Oil) 133 ml [place] DAILYPRN PRN PRN Reason: Constipation Nitroglycerin (Nitrostat) 0.4 mg SL Q5MIN PRN PRN Reason: Chest Pain Ondansetron HCl (Zofran) 4 mg IVP Q6H PRN PRN Reason: Nausea/Vomiting Pantoprazole Sodium (Protonix) 40 mg PO DAILY [facility] Last Admin: 02/26/20 09:02 Dose: 40 mg Sodium Chloride (Flush - Normal Saline) 10 ml IVF Q12HR [facility] Last Admin: 02/26/20 09:03 Dose: 10 ml Zolpidem Tartrate (Ambien) 5 mg PO HSPRN PRN PRN Reason: Insomnia Vital Signs & Weight: Vital Signs Temp Pulse Pulse Pulse Resp BP BP 02/26/20 15:35 97.3 F L 72 20 02/26/20 12:23 84 71 115/61 02/26/20 11:08 98.0 F 65 18 104/57 L 02/26/20 09:16 77 75 116/58 L 02/26/20 07:34 97.5 F L 73 18 BP Pulse Ox 02/26/20 15:35 118/64 94 L 02/26/20 12:23 02/26/20 11:08 97 02/26/20 09:16 02/26/20 07:34 150/76 H 98 Weight 260 lb 4.8 oz - Physical Exam General: alert & oriented x3 HEENT: mucus membranes moist Neck: supple neck Cardiac: regular rate and rhythm Lungs: clear to auscultation Neuro: grossly intact Abdomen: active bowel sounds Extremities: 1+ LE edema Skin: clear Musculoskeletal: no pain - Labs Result Diagrams: 02/26/20 03:50 02/26/20 03:50 Troponin/CKMB CK-MB (CK-2) 33.2 ng/mL (0-6.6) H* 02/19/20 08:14 Troponin I 10.653 ng/mL (< 0.028) H* 02/19/20 08:15 - Telemetry Sinus rhythms and dysrhythmias: sinus rhythm Supraventricular conduction: atrial fibrillation - Assessment/Plan Assessment/Plan: 1. Acute inferior STEMI 2. Multivessel CAD 3. S/P CABG x 5 4. HTN 5. New onset DMT2 6. Post op afib. PLAN: - ASA/statin for life. - BB/ACEI once BP allows. . - Metformin for diabetes. Up titrate DM meds as outpatient with PCP. - PT as tolerated. - Will switch to PO amio load at 400 mg BID for 7 days then 200 mg daily.
[2020-02-26] MEDS: Amiodarone 200 MG TAB PO SCH (20:40)
[2020-02-26] MEDS: Atorvastatin Calcium 40 MG TAB PO SCH (20:40)
[2020-02-27 03:57] LABS: #Eosinphils 0.3 thou/uL (0.0-0.7); #Lymphocytes 2.9 thou/uL (1.20-3.40); #Monocytes 1.4 thou/uL (0.11-0.59); #Neutrophils 10.8 thou/uL (1.40-6.50); %Basophils 0.1 % (0.0-1.0); %Eosinophils 1.8 % (0.0-10.0); %Neutrophils 70.1 % (42.0-75.0); Hemoglobin 10.4 g/dL (14.0-18.0); Mean Corpuscular HGB CONC 34.8 g/dL (32.0-36.0); Mean Corpuscular Hemoglobin 31.3 pg (27.0-31.0); Mean Corpuscular Volume 89.8 fL (78.0-98.0); Mean Platelet Volume 8.2 fL (7.4-10.4); Platelet Count 317 thou/uL (130-400); RBC Distribution Width 12.8 % (11.5-14.5); Red Blood Cell (RBC) Count 3.33 mill/uL (4.70-6.10); White Blood Cell (WBC) Count 15.4 thou/uL (4.8-10.8)
[2020-02-27 04:17] LABS: Anion Gap 14 mmol/L (10-20); BUN (Urea Nitrogen) 18 mg/dL (8.4-25.7); Calc. Creatinine Clearance 153 mL/min (70-130); Calcium 8.8 mg/dL (7.8-10.44); Carbon Dioxide 33 mmol/L (22-29); Chloride 88 mmol/L (98-107); Estimated GFR-MDRD 89; Glucose 158 mg/dL (70-105); Potassium 3.2 mmol/L (3.5-5.1); Sodium 132 mmol/L (136-145)
[2020-02-27 07:33] VITALS: TEMP 97.7
[2020-02-27] MEDS: metFORMIN 500 MG TAB PO SCH (08:16)
[2020-02-27] MEDS: Docusate 100 MG CAP PO SCH (08:16)
[2020-02-27] MEDS: Amiodarone 200 MG TAB PO SCH (08:17)
[2020-02-27] MEDS: Aspirin Chewable 81 MG TAB PO SCH (08:17)
[2020-02-27] MEDS: Metoprolol Tartrate 50 MG TAB PO SCH (08:17)
--- NOTE | 2020-02-27 11:23 | DIS ---
DATE OF ADMISSION: 02/19/2020 DATE OF DISCHARGE: 02/27/2020 PRINCIPAL DIAGNOSIS: Inferior ST-elevation myocardial infarction with post infarction angina. SECONDARY DIAGNOSES: Hypertension and diabetes mellitus. PROCEDURES PERFORMED: Cardiac catheterization on 02/19/2020, coronary artery bypass grafting x5 with left internal mammary artery to the distal LAD, reverse greater saphenous vein grafts from the aorta to the apical LAD from the aorta to the first diagonal and from the aorta to the posterior descending artery and left radial artery from the aorta to the first obtuse marginal on 02/22/2020. HISTORY OF PRESENT ILLNESS AND HOSPITAL COURSE: The patient is a 59-year-old smoker who has noted that his blood pressure had recently been running high. He had an episode of chest pain that prompted presentation to the [place] [facility]. In spite of a positive troponin at that time, he refused admission and went home, only to return the following night with recurrence of chest pain. At this time, he had inferior ST elevation and he was transferred to [place], where emergent cardiac catheterization demonstrated severe 3-vessel coronary artery disease and decreased LV function with akinesis of the inferior wall. He was allowed to recover from his [place] for a few days and then was taken to the operating room for surgical revascularization. Although he had no known history of diabetes, he was noted to have markedly elevated blood sugars and hemoglobin A1c in excess of 10. His blood sugars initially were controlled with insulin sliding scale and perioperatively with an insulin drip. He was started on Lopressor as his heart rate and blood pressure would tolerate and metformin as his blood sugars tolerated. On the evening of postoperative day #3, he went into atrial fibrillation that was fairly easily converted back into a sinus rhythm with IV amiodarone and on postoperative day #4, he was switched over to oral amiodarone. He is now being discharged home on postoperative day #5, doing well. He is to take amiodarone 400 mg b.i.d. for a week and then will go to 200 mg a day. He is on Lopressor 50 mg twice a day, Lipitor 40 mg a day, baby aspirin a day, metformin 1000 mg b.i.d. He is recently prescribed losartan, it currently on hold and he has been given a prescription for [place] as needed for pain. Job ID: [id number]
[2020-02-27 11:52] VITALS: BP 141/66
== END 2020-02-27 11:55 | disposition home or self-care (01) | DRG 232 ==
LOC: CCL 01:12 → CCU 02:23 → 2NO 02-20 18:30 → CCU 02-22 09:20 → 2NO 02-23 17:15
PROVIDERS: ADMIT Internal Medicine Cardiovascular Disease; ATTEND Internal Medicine Cardiovascular Disease
PROC: 02703ZZ Dilation of Coronary Artery, One Artery, Percutaneous Approach (ICD-10-PCS; 2020-02-19)
PROC: 02C03ZZ Extirpation of Matter from Coronary Artery, One Artery, Percutaneous Approach (ICD-10-PCS; 2020-02-19)
PROC: B2151ZZ Fluoroscopy of Left Heart using Low Osmolar Contrast (ICD-10-PCS; 2020-02-19)
PROC: B2111ZZ Fluoroscopy of Multiple Coronary Arteries using Low Osmolar Contrast (ICD-10-PCS; 2020-02-19)
PROC: 02100Z9 Bypass Coronary Artery, One Artery from Left Internal Mammary, Open Approach (ICD-10-PCS; principal; 2020-02-22)
PROC: 021209W Bypass Coronary Artery, Three Arteries from Aorta with Autologous Venous Tissue, Open Approach (ICD-10-PCS; 2020-02-22)
PROC: 02100AW Bypass Coronary Artery, One Artery from Aorta with Autologous Arterial Tissue, Open Approach (ICD-10-PCS; 2020-02-22)
PROC: 03BC3ZZ Excision of Left Radial Artery, Percutaneous Approach (ICD-10-PCS; 2020-02-22)
PROC: 06BQ4ZZ Excision of Left Saphenous Vein, Percutaneous Endoscopic Approach (ICD-10-PCS; 2020-02-22)
PROC: 4A023N7 Measurement of Cardiac Sampling and Pressure, Left Heart, Percutaneous Approach (ICD-10-PCS; 2020-02-22)
PROC: 5A1221Z Performance of Cardiac Output, Continuous (ICD-10-PCS; 2020-02-22)
PROC: 04Q Lower Arteries, Repair (ICD-10-PCS; 2020-02-22)
DX: I21.19 ST elevation (STEMI) myocardial infarction involving other coronary artery of inferior wall (principal); I25.118 Atherosclerotic heart disease of native coronary artery with other forms of angina pectoris; I10 Essential (primary) hypertension; E11.9 Type 2 diabetes mellitus without complications; F17.210 Nicotine dependence, cigarettes, uncomplicated; Z79.82 Long term (current) use of aspirin; Z79.899 Other long term (current) drug therapy; I48.91 Unspecified atrial fibrillation
CPT/HCPCS: 36415; 36416; 36430; 71045; 80048; 80053; 80076; 82553; 82805; 83036; 83735; 84443; 85014; 85018; 85025; 85049; 85347; 85610; 85730; 86850; 86900; 86901; 92920; 92973; 93005; 93010; 93306; 93458; 93798; 94002; 94003; 94150; 99152; 99153; C1757; C1769; C1887; J0282; J0461; J0690; J1100; J1642; J1644; J1815; J1885; J1940; J2001; J2250; J2260; J2270; J2405; J2440; J2720; J3010; J3246; J3370; J3475; J3480; J7070; P9016; P9035; P9045; P9059; Q9967; S0017

== ENCOUNTER 2022-03-28 09:19 | Inpatient (IN) | payer BC ==
[2022-03-28] MEDS ORDERED: Ondansetron ODT 4 MG TAB PO PRN (09:35)
[2022-03-28] MEDS ORDERED: Ondansetron PF 4 MG/2 ML Vial IVP PRN (09:35)
[2022-03-28] MEDS ORDERED: Acetaminophen 325 MG TAB PO PRN ×2 (09:36→20:35)
[2022-03-28 10:21] VITALS: BMI 34.7
[2022-03-28] MEDS ORDERED: Enoxaparin Sodium 40 MG/0.4 ML SYRINGE SC SCH (11:15)
[2022-03-28] MEDS ORDERED: Dextrose 5% in Water 1,000 ML IV PRN (11:16)
[2022-03-28] MEDS ORDERED: Dextrose 50% Abboject 50 ML SYRINGE SLOW IVP PRN (11:16)
[2022-03-28] MEDS: HumaLOG 300 UNITS/3 ML VIAL SC PRN ×3 (12:42→20:22)
[2022-03-28] MEDS: Nicotine 14 MG PATCH TD SCH (12:44)
[2022-03-28 15:50] LABS: SARS-CoV-2 PCR by NAA Not Detected (NotDetected)
[2022-03-28] MEDS: metFORMIN 500 MG TAB PO SCH (17:02)
[2022-03-28] MEDS: Metoprolol Tartrate 50 MG TAB PO SCH (20:21)
[2022-03-28] MEDS: Atorvastatin Calcium 40 MG TAB PO SCH (20:21)
[2022-03-28] MEDS ORDERED: Atorvastatin Calcium 40 MG TAB PO SCH (21:00)
[2022-03-29 05:32] LABS: Hemoglobin A1c 12.8 % (4.0-6.0)
[2022-03-29] MEDS: HumaLOG 300 UNITS/3 ML VIAL SC PRN ×2 (06:04→11:54)
[2022-03-29] MEDS: Enoxaparin Sodium 40 MG/0.4 ML SYRINGE SC SCH (09:26)
[2022-03-29] MEDS: Aspirin 325 mg Enteric Coated Tablet PO SCH (09:27)
[2022-03-29] MEDS: metFORMIN 500 MG TAB PO SCH ×2 (09:27→17:28)
[2022-03-29] MEDS: Metoprolol Tartrate 50 MG TAB PO SCH ×2 (09:27→20:25)
[2022-03-29] MEDS: Empagliflozin 25 MG TAB PO SCH (10:32)
[2022-03-29] MEDS: Nicotine 14 MG PATCH TD SCH (12:45)
[2022-03-29] MEDS: Atorvastatin Calcium 40 MG TAB PO SCH (20:25)
[2022-03-30] MEDS: Empagliflozin 25 MG TAB PO SCH (07:59)
[2022-03-30] MEDS: metFORMIN 500 MG TAB PO SCH (08:00)
[2022-03-30] MEDS: Enoxaparin Sodium 40 MG/0.4 ML SYRINGE SC SCH (08:00)
[2022-03-30] MEDS: Aspirin 325 mg Enteric Coated Tablet PO SCH (08:00)
[2022-03-30] MEDS: Metoprolol Tartrate 50 MG TAB PO SCH (08:01)
[2022-03-30] MEDS ORDERED: Glimepiride 2 MG TAB PO SCH (08:15)
[2022-03-30 11:43] VITALS: BP 130/73; TEMP 98.4
[2022-03-30] MEDS: Nicotine 14 MG PATCH TD SCH (11:57)
[2022-03-31] MEDS ORDERED: Glimepiride 2 MG TAB PO SCH (08:00)
== END 2022-03-30 14:08 | disposition home or self-care (01) | DRG 65 ==
LOC: NEURO 09:19
PROVIDERS: ADMIT Internal Medicine; ATTEND Internal Medicine
DX: I63.81 Other cerebral infarction due to occlusion or stenosis of small artery (principal); G81.94 Hemiplegia, unspecified affecting left nondominant side; Z51.5 Encounter for palliative care; Z20.822 Contact with and (suspected) exposure to COVID-19; F17.210 Nicotine dependence, cigarettes, uncomplicated; E11.59 Type 2 diabetes mellitus with other circulatory complications; E66.01 Morbid (severe) obesity due to excess calories; I25.10 Atherosclerotic heart disease of native coronary artery without angina pectoris; I10 Essential (primary) hypertension; R29.703 NIHSS score 3; I48.91 Unspecified atrial fibrillation; Z79.82 Long term (current) use of aspirin; Z79.84 Long term (current) use of oral hypoglycemic drugs; Z79.899 Other long term (current) drug therapy; Z95.1 Presence of aortocoronary bypass graft; Z68.34 Body mass index [BMI] 34.0-34.9, adult
CPT/HCPCS: 0439T; 36415; 36416; 70551; 80061; 83036; 84443; 93306; 93880; J1650; J1815; U0003; U0005